=== PATIENT | male | born 1950 | race Caucasian/White ===

== ENCOUNTER 2018-10-01 08:31 | Outpatient (REF) | payer BC, SELFPAY ==
[2018-10-01 12:35] LABS: Anion Gap 10.8 mmol/L (3-11); BUN 19 mg/dL (7-18); CO2 26.2 mmol/L (21.0-32.0); CREATININE 1.16 mg/dL (0.70-1.30); Calcium 9.2 mg/dL (8.5-10.1); Chloride 104 mmol/L (98-107); Glucose 123 mg/dL (70-100); Potassium 4.2 mmol/L (3.5-5.1); Sodium 141 mmol/L (136-145); TSH (W/Ref FT4) 3.52 uIU/mL (0.358-3.74)
[2018-10-02 12:36] LABS: PSA, Screening 1.4 ng/ml (0-4.5)
== END 2018-10-01 08:51 ==
LOC: NCHCN 08:31
PROVIDERS: PCP Family Medicine; Visit Provider Family Medicine
DX: E03.9 Hypothyroidism, unspecified (principal); I10 Essential (primary) hypertension; R73.09 Other abnormal glucose; Z00.00 Encounter for general adult medical examination without abnormal findings
CPT/HCPCS: 80048; 84153; 84443

== ENCOUNTER 2019-01-07 21:17 | Outpatient (REF) | payer BC, SELFPAY ==
[2019-01-07 18:58] LABS: Anion Gap 6.1 mmol/L (3-11); BUN 19 mg/dL (7-18); CO2 29.9 mmol/L (21.0-32.0); Calcium 8.7 mg/dL (8.5-10.1); Calculated LDL 79 mg/dL; Chloride 104 mmol/L (98-107); Cholesterol 135 mg/dL (50-200); Estimated GFR 55.06 (mL/min/1.73m2); Glucose 122 mg/dL (70-100); HDL Cholesterol 44 mg/dL (40-60); Potassium 4.8 mmol/L (3.5-5.1); Sodium 140 mmol/L (136-145); Triglyceride 60 mg/dL (30-150)
== END 2019-01-07 21:37 ==
LOC: NCHCN 21:17
PROVIDERS: PCP Family Medicine; Visit Provider Family Medicine
DX: I10 Essential (primary) hypertension (principal); E78.5 Hyperlipidemia, unspecified
CPT/HCPCS: 80048; 80061

== ENCOUNTER 2019-11-14 13:58 | Outpatient (REF) | payer BC, SELFPAY ==
[2019-11-17 01:00] LABS: SARS-CoV-2 RNA Undetected (Undetected); SARS-CoV-2 Specimen Source Nasopharynx
== END 2019-11-14 14:18 ==
LOC: NCHCN 13:58
PROVIDERS: PCP Family Medicine; Visit Provider Family Medicine
DX: Z20.828 Contact with and (suspected) exposure to other viral communicable diseases (principal)
CPT/HCPCS: U0003

== ENCOUNTER 2020-01-07 20:46 | Outpatient (REF) | payer BC, SELFPAY ==
[2020-01-07 20:53] LABS: Anion Gap 11.4 mmol/L (3-11); BUN 23 mg/dL (7-18); CO2 25.6 mmol/L (21.0-32.0); CREATININE 1.32 mg/dL (0.70-1.30); Calcium 9.6 mg/dL (8.5-10.1); Chloride 102 mmol/L (98-107); Estimated GFR 53.94 (mL/min/1.73m2); Glucose 193 mg/dL (74-106); Potassium 4.2 mmol/L (3.5-5.1); Sodium 139 mmol/L (136-145); TSH (W/Ref FT4) 3.26 uIU/mL (0.36-3.74)
[2020-01-07 20:54] LABS: Hemoglobin A1C 6.6 % (<5.7)
== END 2020-01-07 21:06 ==
LOC: NCHCN 20:46
PROVIDERS: PCP Family Medicine; Visit Provider Family Medicine
DX: E03.9 Hypothyroidism, unspecified (principal); R73.03 Prediabetes; I10 Essential (primary) hypertension
CPT/HCPCS: 80048; 83036; 84443

== ENCOUNTER 2020-04-28 15:05 | Outpatient (REF) | payer BC, SELFPAY ==
[2020-04-27 13:29] LABS: Hemoglobin A1C 7.1 % (<5.7)
== END 2020-04-28 15:25 ==
LOC: NCHCN 15:05
PROVIDERS: PCP Family Medicine; Visit Provider Family Medicine
DX: R73.03 Prediabetes (principal)
CPT/HCPCS: 83036

== ENCOUNTER 2021-01-01 16:08 | Outpatient (REF) | payer BC, SELFPAY ==
[2020-12-31 21:16] LABS: Anion Gap 12.1 mmol/L (3-11); BUN 22 mg/dL (7-18); CO2 24.9 mmol/L (21.0-32.0); CREATININE 1.5 mg/dL (0.70-1.30); Calcium 9.6 mg/dL (8.5-10.1); Calculated LDL 49 mg/dL (<100); Chloride 104 mmol/L (98-107); Cholesterol 123 mg/dL (<200); Glucose 127 mg/dL (74-106); HDL Cholesterol 41 mg/dL (40-60); Potassium 4.9 mmol/L (3.5-5.1); Sodium 141 mmol/L (136-145); TSH (W/Ref FT4) 2.25 uIU/mL (0.36-3.74); Triglyceride 169 mg/dL (<150)
== END 2021-01-01 16:09 | disposition home or self-care (01) ==
LOC: NCHCN 16:08
PROVIDERS: PCP Family Medicine; Visit Provider Family Medicine
DX: I10 Essential (primary) hypertension (principal); E03.9 Hypothyroidism, unspecified; E78.5 Hyperlipidemia, unspecified; Z00.00 Encounter for general adult medical examination without abnormal findings
CPT/HCPCS: 80048; 80061; 84443

== ENCOUNTER 2021-02-23 08:10 | Outpatient (REF) | payer BC, SELFPAY ==
[2021-02-23 19:18] LABS: Anion Gap 5.4 mmol/L (3-11); BUN 24 mg/dL (7-18); CO2 32.6 mmol/L (21.0-32.0); CREATININE 1.3 mg/dL (0.70-1.30); Calcium 9.2 mg/dL (8.5-10.1); Chloride 104 mmol/L (98-107); Estimated GFR 54.73 (mL/min/1.73m2); Glucose 126 mg/dL (74-106); Potassium 4.7 mmol/L (3.5-5.1); Sodium 142 mmol/L (136-145)
== END 2021-02-23 08:11 | disposition home or self-care (01) ==
LOC: NCHCN 08:10
PROVIDERS: PCP Family Medicine; Visit Provider Family Medicine
DX: I10 Essential (primary) hypertension (principal); R80.9 Proteinuria, unspecified
CPT/HCPCS: 80048

== ENCOUNTER 2021-12-14 09:27 | Outpatient (REF) | payer BC, SELFPAY ==
[2021-12-14 16:29] LABS: ALT 25 U/L (16-63); AST 21 U/L (15-37); Albumin 4.1 g/dL (3.4-5.0); Alkaline Phosphatase 76 U/L (46-116); Anion Gap 8.8 mmol/L (3-11); BUN 21 mg/dL (7-18); CO2 29.2 mmol/L (21.0-32.0); CREATININE 1.2 mg/dL (0.70-1.30); Calcium 9.2 mg/dL (8.5-10.1); Chloride 101 mmol/L (98-107); Estimated GFR 65.06 (mL/min/1.73m2); Glucose 126 mg/dL (74-106); Potassium 4.4 mmol/L (3.5-5.1); Sodium 139 mmol/L (136-145); TSH (W/Ref FT4) 2.97 uIU/mL (0.36-3.74); Total Protein 7.9 g/dL (6.4-8.2)
[2021-12-15 05:17] LABS: Vitamin D 25 Total 79.2 ng/mL (30-100)
== END 2021-12-14 09:28 | disposition home or self-care (01) ==
LOC: NCHCN 09:27
PROVIDERS: PCP Family Medicine; Visit Provider Family Medicine
DX: E03.9 Hypothyroidism, unspecified (principal); R16.0 Hepatomegaly, not elsewhere classified; E11.9 Type 2 diabetes mellitus without complications; E55.9 Vitamin D deficiency, unspecified
CPT/HCPCS: 80053; 82306; 84443

== ENCOUNTER 2022-12-19 09:19 | Outpatient (REF) | payer BC, SELFPAY ==
[2022-12-19 17:23] LABS: Anion Gap 6.8 mmol/L (3-11); BUN 19 mg/dL (7-18); CO2 29.2 mmol/L (21.0-32.0); CREATININE 1.4 mg/dL (0.70-1.30); Calcium 9.2 mg/dL (8.5-10.1); Chloride 100 mmol/L (98-107); Estimated GFR 53.74 (mL/min/1.73m2); Glucose 140 mg/dL (74-106); Potassium 4.7 mmol/L (3.5-5.1); Sodium 136 mmol/L (136-145); Vitamin B12 215 pg/mL (193-986)
== END 2022-12-19 09:20 | disposition home or self-care (01) ==
LOC: NCHCN 09:19
PROVIDERS: PCP Family Medicine; Visit Provider Family Medicine
DX: E03.9 Hypothyroidism, unspecified (principal); I10 Essential (primary) hypertension; E11.40 Type 2 diabetes mellitus with diabetic neuropathy, unspecified; Z86.39 Personal history of other endocrine, nutritional and metabolic disease
CPT/HCPCS: 80048; 82607; 84443

== ENCOUNTER 2023-05-18 11:05 | Outpatient (REF) | payer BC, SELFPAY ==
[2023-05-18 17:03] LABS: Hemoglobin A1C 6.5 % (<5.7)
[2023-05-18 17:17] LABS: Vitamin B12 > 2000 pg/mL (193-986)
== END 2023-05-18 11:06 | disposition home or self-care (01) ==
LOC: NCHCN 11:05
PROVIDERS: PCP Family Medicine; Referring Provider Family Medicine; Visit Provider Family Medicine
DX: E11.40 Type 2 diabetes mellitus with diabetic neuropathy, unspecified (principal)
CPT/HCPCS: 82607; 83036

== ENCOUNTER 2024-03-14 12:10 | Outpatient (REF) | payer BC, SELFPAY ==
[2024-03-14 14:39] LABS: Hemoglobin A1C 7.1 % (<5.7)
[2024-03-14 14:49] LABS: ALT 24 U/L (16-63); AST 24 U/L (15-37); Albumin 3.8 g/dL (3.4-5.0); Alkaline Phosphatase 106 U/L (46-116); BUN 22 mg/dL (7-18); Bilirubin, Total 0.66 mg/dL (0.2-1.0); CREATININE 1.6 mg/dL (0.70-1.30); Calcium 9.5 mg/dL (8.5-10.1); Calculated LDL 58 mg/dL (<100); Chloride 104 mmol/L (98-107); Cholesterol 132 mg/dL (<200); Glucose 150 mg/dL (74-106); HDL Cholesterol 45 mg/dL (40-60); Potassium 4.5 mmol/L (3.5-5.1); Sodium 142 mmol/L (136-145); TSH 19.03 uIU/mL (0.36-3.74); Total Protein 7.9 g/dL (6.4-8.2); Triglyceride 149 mg/dL (<150)
== END 2024-03-14 12:11 | disposition home or self-care (01) ==
LOC: NCHCN 12:10
PROVIDERS: PCP Family Medicine; Visit Provider Physician Assistant
DX: E11.9 Type 2 diabetes mellitus without complications (principal); E03.9 Hypothyroidism, unspecified
CPT/HCPCS: 80053; 80061; 83036; 84443

== ENCOUNTER 2024-03-17 15:28 | Outpatient (REF) | payer BC, SELFPAY ==
[2024-03-17 21:00] LABS: COMMENT (LAB VIEW ONLY) 143.61 mg/dL
[2024-03-17 21:01] LABS: Microalb ug/mg Crea 118.4 ug/mg Cr
== END 2024-03-17 15:29 | disposition home or self-care (01) ==
LOC: NCHCN 15:28
PROVIDERS: PCP Family Medicine; Visit Provider Physician Assistant
DX: E11.9 Type 2 diabetes mellitus without complications (principal)
CPT/HCPCS: 82043; 82570

== ENCOUNTER 2024-03-20 21:55 | Outpatient (REF) | payer BC, SELFPAY | END 2024-03-20 21:56 | disposition home or self-care (01) | LOC: LBN 21:55 | PROVIDERS: PCP Family Medicine; Visit Provider Physician Assistant Medical | DX: J02.9 Acute pharyngitis, unspecified (principal) | CPT/HCPCS: 87070 ==

== ENCOUNTER 2024-04-03 09:51 | Outpatient (REF) | payer BC, SELFPAY ==
[2024-04-03 15:33] LABS: Abs Immature Grans 0.03 10^3/uL (0.0-0.06); Absolute Basophil Count 0.08 10^3/uL (0.0-0.2); Absolute Eosinophil Count 0.26 10^3/uL (0.0-0.7); Absolute Lymphocyte Count 2.03 10^3/uL (1.2-3.4); Absolute Monocyte Count 0.63 10^3/uL (0.1-0.8); Absolute Neutrophil Count 4.03 10^3/uL (1.2-6.7); Basophils % 1.1 %; Eosinophils % 3.7 %; HCT 41.8 % (40.0-50.0); HGB 13.9 g/dL (13.5-17.5); Immature Grans % 0.4 %; Lymphocytes % 28.8 %; MCH 30.2 pg (27.0-33.0); MCHC 33.3 % (32.0-36.0); MCV 91 fL (80-95); MPV 9.8 fL (8.0-11.0); Monocytes % 8.9 %; Neutrophils % 57.1 %; Platelet Count 208 10^3/uL (130-400); RBC 4.61 10^6/uL (4.36-5.78); RDW 14.5 % (11.8-14.1); RDW-SD 48.1 fL; WBC 7.06 10^3/uL (4.4-10.8)
[2024-04-04 12:44] LABS: Albumin 51.4 % (55.8-66.1); Albumin g/dL 3.8 g/dL (3.6-5.2); Total Protein 7.3 g/dL (6.3-8.2)
== END 2024-04-03 09:52 | disposition home or self-care (01) ==
LOC: NCHCN 09:51
PROVIDERS: PCP Family Medicine; Visit Provider Physician Assistant
DX: R59.0 Localized enlarged lymph nodes (principal)
CPT/HCPCS: 84165; 85025

== ENCOUNTER 2024-06-20 16:17 | Outpatient (REF) | payer BC, SELFPAY ==
[2024-06-20 21:51] LABS: Hemoglobin A1C 7.5 % (<5.7)
[2024-06-20 21:56] LABS: Anion Gap 9.8 mmol/L (3-11); BUN 28 mg/dL (7-18); CO2 29.2 mmol/L (21.0-32.0); CREATININE 1.5 mg/dL (0.70-1.30); Calcium 9.8 mg/dL (8.5-10.1); Chloride 101 mmol/L (98-107); Estimated GFR 49.16 (mL/min/1.73m2); Glucose 198 mg/dL (74-106); Potassium 4.3 mmol/L (3.5-5.1); Sodium 140 mmol/L (136-145); TSH 2.57 uIU/mL (0.36-3.74)
== END 2024-06-20 16:18 | disposition home or self-care (01) ==
LOC: NCHCN 16:17
PROVIDERS: PCP Physician Assistant; Visit Provider Physician Assistant
DX: E11.9 Type 2 diabetes mellitus without complications (principal); N28.9 Disorder of kidney and ureter, unspecified; E03.9 Hypothyroidism, unspecified
CPT/HCPCS: 80048; 83036; 84443

== ENCOUNTER 2024-07-02 09:51 | Outpatient (CLI) | payer BC, SELFPAY ==
[2024-07-02 13:54] LABS: Abs Immature Grans 0.02 10^3/uL (0.0-0.06); Absolute Basophil Count 0.06 10^3/uL (0.0-0.2); Absolute Eosinophil Count 0.19 10^3/uL (0.0-0.7); Absolute Lymphocyte Count 1.82 10^3/uL (1.2-3.4); Absolute Monocyte Count 0.61 10^3/uL (0.1-0.8); Absolute Neutrophil Count 4.51 10^3/uL (1.2-6.7); Basophils % 0.8 %; Eosinophils % 2.6 %; HCT 43.3 % (40.0-50.0); HGB 14.2 g/dL (13.5-17.5); Immature Grans % 0.3 %; Lymphocytes % 25.2 %; MCH 30.1 pg (27.0-33.0); MCHC 32.8 % (32.0-36.0); MCV 92 fL (80-95); MPV 9.2 fL (8.0-11.0); Monocytes % 8.5 %; Neutrophils % 62.6 %; Platelet Count 213 10^3/uL (130-400); RBC 4.72 10^6/uL (4.36-5.78); RDW 13.3 % (11.8-14.1); RDW-SD 45.5 fL; WBC 7.21 10^3/uL (4.4-10.8)
[2024-07-02 14:20] LABS: ALT 28 U/L (16-63); AST 22 U/L (15-37); Albumin 3.9 g/dL (3.4-5.0); Alkaline Phosphatase 135 U/L (46-116); Anion Gap 7.6 mmol/L (3-11); BUN 27 mg/dL (7-18); Bilirubin, Total 0.7 mg/dL (0.2-1.0); CO2 28.4 mmol/L (21.0-32.0); CREATININE 1.6 mg/dL (0.70-1.30); Calcium 9.9 mg/dL (8.5-10.1); Chloride 104 mmol/L (98-107); Glucose 221 mg/dL (74-106); LDH 175 U/L (85-227); Potassium 4.3 mmol/L (3.5-5.1); Sodium 140 mmol/L (136-145); Total Protein 8.5 g/dL (6.4-8.2); Uric Acid 4.7 mg/dL (3.5-7.2)
[2024-07-03 12:57] LABS: Albumin 51.4 % (55.8-66.1); Albumin g/dL 4.2 g/dL (3.6-5.2); Total Protein 8.1 g/dL (6.3-8.2)
[2024-07-03 17:00] LABS: Beta-2-Microglobulin 3.76 mcg/mL
[2024-07-03 17:02] LABS: Leukemia/Lymphoma by FC (Blood (See below)
== END 2024-07-02 09:52 | disposition home or self-care (01) ==
LOC: LBO 09:54
PROVIDERS: PCP Physician Assistant; Visit Provider Physician Assistant
DX: C83.30 Diffuse large B-cell lymphoma, unspecified site (principal)
CPT/HCPCS: 36415; 80053; 88185; 82232; 83615; 84165; 84550; 85025; 88184; 88189

== ENCOUNTER 2024-08-22 15:28 | Inpatient (IN) | payer BC, MEDICARE, SELFPAY ==
[2024-08-22] VITALS (75 sets, daily range): BP systolic 100–152; BP diastolic 47–76; PULSE 107–125; RESP 6–26; TEMP 37.8–38; O2SAT 93–99
--- NOTE | 2024-08-22 15:15 | RT.EKG_ITS ---
APPROVED REPORT Exam: Resting ECG Reason for Exam: SEPSIS Patient Location: E HR:121 bpm ECG Measurements Heart Rate 121 AXIS SD 155 P 49 QRSd 71 QRS -25 QT 271 T 231 QTc 385 Conclusion Sinus tachycardia...rate> 99 Nonspecific T abnormalities, diffuse leads...T <-0.10mV, ant/lat/inf No Occlusion PA
--- NOTE | 2024-08-22 15:30 | DI.RAD_ITS ---
Exam(s) XR PORTABLE CHEST AP EXAM: XR PORTABLE CHEST AP CLINICAL HISTORY: sepsis TECHNIQUE: 2D digital imaging was performed of the chest. One image was obtained. An AP view was ob tained. COMPARISON: No exams were available for comparison FINDINGS: MEDIASTINUM: Normal. HEART: Normal. PULMONARY VASCULATURE: Normal. LUNGS: Clear. PLEURAL SPACE: No pleural effusion or pneumothorax. BONE:Within normal limits for the patient's age. OTHER FINDINGS:There is a right port in place. IMPRESSION: No acute pulmonary findings. DATA REPOSITORY: RADIATION DOSE DELIVERED:
--- NOTE | 2024-08-22 15:37 | W.ED.GENAD ---
Discharge Plan Discharge Details Chief Complaint: AMS/LOC Clinical Impression: Neutropenic fever Primary Care Provider: Aly Varela ED Provider: Brian Don Home Meds and New Rx's Prescriptions: No Action levothyroxine 75 mcg capsule 75 mcg PO DAILY losartan 25 mg tablet 25 mg PO DAILY metformin 500 mg tablet 500 mg PO DAILY Ultra CoQ10 75 mg capsule 75 mg PO DAILY vitamins B1 B6 B12 Liquid 5 ml PO DAILY amlodipine 2.5 MG tablet 2.5 mg PO DAILY cholecalciferol (vitamin D3) 1,000 UNITS tablet 1,000 units PO HPI General Date/Time Provider Initiated Documentation: 08/22/24 15:34. HPI Narrative: MDM This is a tachycardic and borderline febrile 73-year-old male with history of diffuse large B cell lymphoma with recent initiation of chemotherapy with Rituxan, Cytoxan, cytoxan, doxorubicin, and Neulasta 8 days ago now with fevers concerning for sepsis for which patient will receive lactate, broad-spectrum antibiotics using cefepime and vancomycin following 2 sets of blood cultures. No pain out of proportion to suggest necrotizing soft tissue infection. No symptoms to suggest Ellen's gangrene. Right chest wall port does not appear infected. Clear lungs and neither tachypneic nor hypoxic so my suspicion for pneumonia is low however will obtain a chest x-ray. Will also obtain urinalysis. Soft nontender abdomen so not suspicious for appendicitis or diverticulitis I do not feel patient requires a CT scan of his abdomen. He is markedly tachycardic into the 120s. His ECG shows that he is in a sinus tachycardia. He received acetaminophen and 500 g of crystalloid with paramedics. His initial blood pressure was 128/80. He was tachycardic into the 140s. His subsequent blood pressure was 108 systolic. 4:52 PM Venous gas lacks acidemia and hypercarbia. Reassuring initial troponin. Comprehensive metabolic panel with mild bump in creatinine from 1.3-1.7 concerning for VASQUZE. Patient does have anion gap of 13. He is mildly decreased bicarbonate. He is also hyperglycemic concern for the possibility of DKA. Will treat with fluids and reassess as patient lacks acidemia on his blood gas. Has a reassuring normal lactate. Patient's CBC is concerning for neutropenia as he has a white count of 0.26 and an absolute neutrophil count of 0.1. He also has worsening thrombocytopenia. Patient has an absolute neutrophil count of 104 cells per microliter making him severely neutropenic. Will defer insulin at this point in time and plan on signing patient out to Dr. Garcia pending [facility] oncology consult and repeat basic metabolic panel following fluids. Patient signed out at bedside. Anticipate patient will be appropriate for local hospitalization. Chronic conditions affecting the care of the patient: Diffuse large B-cell lymphoma History obtained from an outside historian: Paramedics External record review: [facility] EMR [Diagnostic interpretations performed by me: Per my independent interpretation chest x-ray shows: Per my independent interpretation EKG shows: Narrow complex sinus tachycardia. No ST segment elevations. ST segment depressions in leads I and II. Left lateral T wave inversions. ]Medications: Cefepime vancomycin Social determinants of health affecting disposition: N/A Management discussed with: Dr. Garcia Treatment/interventions considered: N/A Response to therapies provided: Improved tachycardia HPI The patient presents to the emergency room for evaluation of generalized weakness. He reports experiencing generalized weakness, which he describes as difficulty rising from a seated position. This symptom onset was last night. He does not report any localized weakness in his extremities. He is not experiencing any respiratory symptoms such as cough or dyspnea, nor any chest discomfort, abdominal pain, or hematochezia. He has had a low-grade fever, with a maximum recorded temperature of 101 degrees Fahrenheit. He has no history of urinary tract infections and is circumcised. He is not experiencing any dysuria or penile pain. He is currently on Jardiance and has been informed that it may predispose him to urinary tract infections. 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 He received Tylenol from the ambulance crew. He underwent his first infusion therapy session 2 weeks ago, during which he was administered prednisone. This treatment initially resulted in an improvement in his condition; however, he experienced a relapse of symptoms last night. Exam General: Well-appearing in no acute distress speaking in complete sentences. Head: Normocephalic, atraumatic. Eye: Extraocular eye movements intact. No conjunctival injection. No scleral icterus. Ear, nose, mouth, throat: Grossly normal inspection. Normal voice, handling secretions normally. Neck: Trachea midline. Cardiovascular: Well-perfused distal extremities. Rapid regular rate. Respiratory: Nonlabored respiration. Systolic ejection murmur 4-6 left sternal border. Gastrointestinal: Nondistended abdomen. Soft nontender. : Circumcised penis. Nontender scrotum. No signs of rash in area. Musculoskeletal: No significant lower extremity pitting edema. Moving all 4 extremities spontaneously. Skin: Normal for age and race, grossly normal temperature and turgor. No acute rash. Neurologic: Alert and appropriate, no apparent acute deficits. Psychiatric: Mood and manner are appropriate. Grooming and personal hygiene are appropriate. Related Data Home Medications ?Medication ?Instructions ?Recorded ?Confirmed amlodipine 2.5 mg tablet 2.5 mg PO DAILY 12/15/16 05/06/24 cholecalciferol (vitamin D3) 25 1,000 units PO 02/13/17 05/06/24 mcg (1,000 unit) tablet coenzyme Q10 75 mg capsule (Ultra 75 mg PO DAILY 04/07/24 05/06/24 CoQ10) levothyroxine 75 mcg capsule 75 mcg PO DAILY 04/07/24 05/06/24 losartan 25 mg tablet 25 mg PO DAILY 04/07/24 05/06/24 metformin 500 mg tablet 500 mg PO DAILY 04/07/24 05/06/24 vitamins B1 B6 B12 oral liquid 5 ml PO DAILY 04/07/24 05/06/24 Allergies Allergy/AdvReac Type Severity Reaction Status Date / Time No Known Allergies Allergy Unverified 05/06/24 07:36 Medical Decision Making Quality:SDOH Health Related Social Needs: No Data to Display PFSH All Active Problems (Updated 08/22/24 @ 17:28 by Brian Don MD) Neutropenic fever (Acute) Enlarged lymph nodes (Acute) Medical History (Updated 08/22/24 @ 17:28 by Brian Don MD) Hypertension Nephrolithiasis Diverticulosis Surgical History (Updated 02/19/17 @ 15:30 by Kia Rosenberg) Colonoscopy - [facility] (02/13/17) Social History Smoking/Tobacco Use Status: Former Tobacco Use Smoking risk assessment performed?: Yes Alcohol Intake: former Drug use: Never Substance use type: does not use POCUS Exam (ED) Limited Cardiac Exam DATE OF EXAM: 08/22/24 TIME OF EXAM: 17:25 PROVIDER THAT PERFORMED THE STUDY: Brian Don IS THIS A REPEAT EXAM DURING THIS ENCOUNTER: no REASON FOR EXAM: Hypotension VISUALIZED STRUCTURES: Four Chambers, Left ventricle and LVOT VIEW OBTAINED: Apical 4-Chamber, Parasternal long-axis and Subxiphoid PERTINENT FINDINGS/IMPRESSION: No pericardial effusion and No RV dilation DIFFERENTIAL DIAGNOSES: Aortic outflow track less than 4 cm, good squeeze, RV less than LV, no significant pericardial effusion. No B-lines bilaterally Exam complete
[2024-08-22] MEDS: CEFEPIME 2 GM in Normal Saline 100 ML IVPB ×2 (15:59→23:57)
[2024-08-22] MEDS: VANCOMYCIN/WATER (PEG) 2 GM/400 ML BAG IVPB (16:00)
[2024-08-22] MEDS: Normal Saline 1,000 ML 1000 ML IV (16:01)
[2024-08-22 16:14] LABS: BE (Venous) -5 mmol/L (-2-3); HCO3 (Venous) 19 mmol/L (23-28); Lactate 1.9 mmol/L (<or=2.0); O2 Sat (Venous) 98 %; TCO2 (Venous) 17 mmol/L (24-29); pCO2 (Venous) 28 mmHg (41-51); pH (Venous) 7.45 (7.31-7.41); pO2 (Venous) 99 mmHg
[2024-08-22 16:17] LABS: Absolute Basophil Count 0.01 10^3/uL (0.0-0.2); Absolute Eosinophil Count 0.01 10^3/uL (0.0-0.7); HCT 33.7 % (40.0-50.0); HGB 11.5 g/dL (13.5-17.5); MCH 29.7 pg (27.0-33.0); MCHC 34.1 % (32.0-36.0); MCV 87 fL (80-95); MPV 10.3 fL (8.0-11.0); RBC 3.87 10^6/uL (4.36-5.78); RDW 13.4 % (11.8-14.1); RDW-SD 42.9 fL
[2024-08-22 16:38] LABS: ALT 30 U/L (16-63); AST 13 U/L (15-37); Albumin 2.7 g/dL (3.4-5.0); Alkaline Phosphatase 61 U/L (46-116); Anion Gap 13.2 mmol/L (3-11); BUN 22 mg/dL (7-18); Bilirubin, Total 1.5 mg/dL (0.2-1.0); CO2 19.8 mmol/L (21.0-32.0); CREATININE 1.7 mg/dL (0.70-1.30); Calcium 8.5 mg/dL (8.5-10.1); Chloride 99 mmol/L (98-107); Glucose 314 mg/dL (74-106); Potassium 3.7 mmol/L (3.5-5.1); Sodium 132 mmol/L (136-145); Total Protein 6.4 g/dL (6.4-8.2); Troponin I 35 ng/L (<or=76)
[2024-08-22 16:47] LABS: Absolute Lymphocyte Count 0.09 10^3/uL (1.2-3.4); Absolute Monocyte Count 0.04 10^3/uL (0.1-0.8); Atypical Lymphocytes % 4 %; Bands % 20 %
[2024-08-22 16:48] LABS: Diff Comment Manual Differential; Platelet Count 80 10^3/uL (130-400); RBC Morphology Normal
[2024-08-22 16:53] LABS: COVID-19 PCR Negative (Negative); Influenza A PCR Negative (Negative); Influenza B PCR Negative (Negative); RSV PCR Negative (Negative)
[2024-08-22 16:55] LABS: WBC 0.26 10^3/uL (4.4-10.8)
--- NOTE | 2024-08-22 16:55 | NUR.NOTE ---
Nursing Note: Critical values received from lab: WBC = 0.26 & Absolute Neutrophils = 0.10 Results delivered to AINSLEY Flower and Dr. Don, ED provider
[2024-08-22 16:57] LABS: Source Nasopharynx
[2024-08-22 17:45] LABS: Troponin I 36 ng/L (<or=76)
--- NOTE | 2024-08-22 18:51 | W.EDPROG ---
Date of service: 08/22/24 Time of Service: 17:00 Medical Decision Making In brief, this is a 73-year-old male patient with history of B-cell lymphoma, who just initiated cancer treatment with chemotherapy 1 week ago, presenting for evaluation of fever to a Tmax of 101, neutropenia, and urinary incontinence. His exam is concerning for neutropenic fever. He has received 1.5 L of IV fluids, cefepime, and vancomycin prior to my arrival. He did have mild anemia as well as a thrombocytopenia to 80. Had some hyperglycemia to 300, history of diabetes, without acidosis appreciated on VBG, making DKA of less concern. He did have an elevation in his BUN and creatinine slightly above his most recent baseline. Urinalysis noninfectious, COVID and influenza screening negative. I did consult oncology, who requested CT imaging to evaluate for any other cause of his neutropenic fever. This was performed and showed a short segment of inflammation in the sigmoid colon concerning for either diverticulitis versus colitis, no evidence for microperforation or abscess. I discussed this patient's case with the hospitalist who is graciously accepted him for admission for ongoing intravenous antibiosis. Cultures were sent and are pending. The patient remained hemodynamically appropriate while under my care and was transferred to the hospitalist team without incident. Angy Garcia MD Quality:SDOH Health Related Social Needs: No Data to Display Discharge Plan Disposition Patient Disposition: Admit to [facility] Condition: Stable Discharge Details Chief Complaint: AMS/LOC Clinical Impression: Neutropenic fever, Diverticulitis large intestine w/o perforation or abscess w/o bleeding Primary Care Provider: Aly Varela ED Provider: Angy Garcia Home Meds and New Rx's Prescriptions: No Action levothyroxine 75 mcg capsule 75 mcg PO DAILY losartan 25 mg tablet 25 mg PO DAILY metformin 500 mg tablet 500 mg PO DAILY Ultra CoQ10 75 mg capsule 75 mg PO DAILY vitamins B1 B6 B12 Liquid 5 ml PO DAILY amlodipine 2.5 MG tablet 2.5 mg PO DAILY cholecalciferol (vitamin D3) 1,000 UNITS tablet 1,000 units PO DAILY acyclovir 400 mg tablet 400 mg PO BID prochlorperazine maleate 10 mg tablet 10 mg PO PRN PRN atorvastatin 10 mg tablet 10 mg PO DAILY Patient Comments: TAKE ONE TABLET BY MOUTH EVERY NIGHT (DME) blood-glucose meter [OneTouch Verio Flex meter] [facility] MISCELLANEOUS Patient Comments: TEST ONCE DAILY polyethylene glycol 3350 17 gram powder in packet 17 g PO DAILY PRN Patient Comments: MIX 17 GRAMS (1 PACKET) IN LIQUID AND DRINK BY MOUTH DAILY NEEDED (CONSTIPATION) (DME) OneTouch Verio test strips Strip MISCELLANEOUS Patient Comments: TEST BLOOD SUGAR ONCE DAILY (DME) lancets [OneTouch Delica Plus Lancet] 33 [place] [facility] [place]LL[place]OUS Patient Comments: TEST BLOOD SUGAR ONCE DAILY
[2024-08-22] MEDS: Omnipaque 350 MG/ML 100 ML BTL IJ (19:25)
[2024-08-22] MEDS: Normal Saline - Diluent 50 ML VIAL IJ (19:26)
--- NOTE | 2024-08-22 19:29 | DI.CT_ITS ---
Exam(s) CT CHEST/ABD/PEL W EXAM: CT CHEST/ABD/PEL W CLINICAL HISTORY: neutropenic fever. TECHNIQUE: Imaging Protocol: Axial computed tomography images with coronal and sagittal reformatted images were created and reviewed. Computer aided detection (CAD) was utilized. CONTRAST MATERIAL: Intravenous: Omnipaque 350 Contrast volume:100 ml Oral: no COMPARISON: CT ABD PELVIS WITH CONTRAST from 09/06/2011 CR XR PORTABLE CHEST AP from 08/22/2024 FINDINGS: CHEST: Pulmonary parenchyma: No consolidation. No dominant measurable mass. Tracheobronchial tree: No bronchiectasis. No mucous plugging.No bronchial wall thickening. Pleura: No effusion or pneumothorax. Mediastinum: Within normal limits. Pulmonary arteries: No visible emboli. Cardiovascular: Heart size normal. No pericardial effusion. Thoracic aorta non-dilated. Bones: Unremarkable for age. No lytic or blastic lesions.No compression fractures. Soft tissues: Port over right pectoral muscle with tip in right atrium. Mild bilateral gynecomastia. ABDOMEN and PELVIS: Liver: Normal density. No suspicious mass. Gallbladder and biliary tract: No evidence of stones or wall thickening. No biliary dilatation. Pancreas: Normal density, no abnormal calcifications or inflammatory process. Spleen: Normal. Kidneys: Normal size, contour and axis. No radiodense stones. No obstructive uropathy. No suspicious masses seen. Adrenal glands: No masses seen. Aorta: Abdominal portion non-dilated. Lymph nodes: Within normal limits. Soft tissues: Prior low left inguinal hernia repair. Bladder: Over distended but unremarkable. Bowel: Diverticulosis of the sigmoid colon. Wall thickening and inflammatory changes in the surround ing fat consistent with diverticulitis. No evidence of perforation or abscess. No obstruction. Onel endix normal. Peritoneal cavity: No ascites. No focal collection. No free air. Bones: Unremarkable for age. Reproductive organs: Unremarkable for age. IMPRESSION: No acute abnormality in the chest. Sigmoid diverticulitis. The preliminary [facility] report was reviewed. RADIATION DOSE DELIVERED: Total DLP DATA REPOSITORY: All CT scans at this facility are submitted to the National Radiology Data Registry (NRDR) Dose Index Registry (DIR) with the [employer] (A[employer]). RADIATION OPTIMIZATION: All CT scans at this facility use at least one of these dose optimization te chniques: automated exposure control; mA and/or kV adjustment per patient size (includes targeted exa ms where dose is matched to clinical indication); or iterative reconstruction.
[2024-08-22 19:48] LABS: Bilirubin Negative (Negative); Blood Small (Negative); Clarity Clear (Clear); Glucose >=1000 mg/dL (Negative); Ketones 40 mg/dL (Negative); Leukocyte Esterase Negative (Negative); Nitrite Negative (Negative); Specific Gravity 1.015 (1.005-1.025); Urobilinogen 0.2 mg/dL (Up to 0.2)
[2024-08-22 19:58] LABS: Bacteria Rare HPF (Negative); Casts 0-2 Hyaline LPF (Negative); Crystals Negative HPF (Negative); Epithelial Cells Rare HPF (Negative); Mucus Trace (Negative); RBC 0-2 HPF (0-2); WBC 0-2 HPF (0-5)
[2024-08-22 19:59] LABS: C & S Indicated? No
--- NOTE | 2024-08-22 20:28 | DI.[facility]_ITS ---
PROCEDURE INFORMATION: Exam: CT Chest With Contrast; Diagnostic Exam date and time: 08/22/2024 7:18 PM Age: 73 years old Clinical indication: Neutropenic fever TECHNIQUE: Imaging protocol: Diagnostic computed tomography of the chest with contrast. 3D rendering (Not supervised by radiologist): MIP and/or 3D reconstructed images were created by the technologist. Radiation optimization: All CT scans at this facility use at least one of these dose optimization techniques: automated exposure control; mA and/or kV adjustment per patient size (includes targeted exams where dose is matched to clinical indication); or iterative reconstruction. Contrast material: [id number]; Contrast volume: 100 ml; Contrast route: INTRAVENOUS (IV); COMPARISON: CR XR PORTABLE CHEST AP 08/22/2024 4:37 PM FINDINGS: Lungs: Unremarkable. No consolidation. No masses. Pleural spaces: Unremarkable. No pneumothorax. No pleural effusion. Heart: Unremarkable. No cardiomegaly. No pericardial effusion. Lymph nodes: Unremarkable. No enlarged lymph nodes. Vasculature: Unremarkable. No aortic aneurysm. Bones/joints: Unremarkable. No acute fracture. Soft tissues: Unremarkable. IMPRESSION: No acute findings. PROCEDURE INFORMATION: Exam: CT Abdomen And Pelvis With Contrast Exam date and time: 08/22/2024 7:18 PM Age: 73 years old Clinical indication: Neutropenic fever TECHNIQUE: Imaging protocol: Computed tomography of the abdomen and pelvis with contrast. 3D rendering (Not supervised by radiologist): MIP and/or 3D reconstructed images were created by the technologist. Radiation optimization: All CT scans at this facility use at least one of these dose optimization techniques: automated exposure control; mA and/or kV adjustment per patient size (includes targeted exams where dose is matched to clinical indication); or iterative reconstruction. Contrast material: [id number]; Contrast volume: 100 ml; Contrast route: INTRAVENOUS (IV); COMPARISON: US ABDOMEN LIMITED 12/23/2021 7:56 AM FINDINGS: Liver: Normal. No mass. Gallbladder and biliary ducts: Normal. No calcified stones. No ductal dilation. Pancreas: Normal. No ductal dilation. Spleen: Normal. No splenomegaly. Adrenal glands: Normal. No mass. Kidneys and ureters: Normal. No hydronephrosis. Stomach and bowel: There is moderate sigmoid diverticulosis. Short-segment wall thickening and mucosal enhancement in the mid sigmoid colon compatible with diverticulitis or possibly focal colitis. No evidence of bowel obstruction. Appendix: No evidence of appendicitis. Intraperitoneal space: Unremarkable. No free air. No significant fluid collection. Vasculature: Unremarkable. No abdominal aortic aneurysm. Lymph nodes: Unremarkable. No enlarged lymph nodes. Urinary bladder: Unremarkable as visualized. Reproductive: Unremarkable as visualized. Bones/joints: Unremarkable. No acute fracture. Soft tissues: Unremarkable. IMPRESSION: Inflammatory changes in the mid sigmoid colon suggestive of diverticulitis. Focal colitis would be of consideration as well. Dictated and Authenticated by: Pierre Casper MD. Orderin St. Leroy Travis MD
[2024-08-22 20:29] LABS: Troponin I 32 ng/L (<or=76)
--- NOTE | 2024-08-22 20:39 | HPE_ITS ---
Date of service: 08/22/24 Time of Service: 20:40 Assessment and Plan Assessment and plan (1) Neutropenic fever: Start date: 08/22/24 Status: Acute Assessment and plan: This is a 73-year-old gentleman with recent diagnosis of lymphoma now on chemotherapy and presenting with neutropenic fever. Close likely source of infection is GI and he is appropriately covered. Blood cultures have been performed. Urinalysis appears benign. Continue IV antibiotic therapy and reverse isolation trending ANC. Patient is a full code. (2) Diverticulitis large intestine w/o perforation or abscess w/o bleeding: Start date: 08/22/24 Status: Acute Assessment and plan: Probable source of fever in this neutropenic patient with appropriate antibiotic coverage awaiting blood cultures. (3) DKA (diabetic ketoacidosis): Start date: 08/22/24 Status: Acute Assessment and plan: Patient does have ketones and acidosis with concern for advancing DKA with his acute illness. IV hydration and more frequent glucometer measures with insulin coverage until patient is improving. Patient will be at ICU level of care during this time of treatment with more intensive nursing management and monitoring. (4) Diffuse large B-cell lymphoma: Status: Acute Assessment and plan: Recent diagnosis with an initiation of therapy recently. Continue to follow-up with hematology/oncology (5) Diabetes type 2, controlled: Status: Chronic Assessment and plan: Hold outpatient for therapy with glucometer measurements every 4 hours with sensitive sliding scale short acting insulin coverage until anion gap closes and acidosis is improving with hydration to assure patient does not progress to DKA. (6) CKD (chronic kidney disease) stage 3, GFR 30-59 ml/min: Status: Chronic Assessment and plan: At baseline creatinine with patient to have trending of labs while we hydrate with fluids to clear acidosis. (7) Hypertension: Assessment and plan: Continue outpatient medical therapy adjusting as needed. (8) Hypothyroidism (acquired): Status: Chronic Assessment and plan: Check TSH, continue outpatient supplementation. History of Present Illness History of Present Illness Chief Complaint: Fever over 101 ?F status post chemotherapy with Neulasta 8 days ago. Narrative: This is a 73-year-old male patient who has a new diagnosis of large B-cell lymphoma having had his first round of chemotherapy 1 week ago with Neulasta given at that time. He began to have fever with urinary incontinence and was advised to be seen in the ED for evaluation. He was found to be neutropenic with his fever and imaging revealed diverticulitis and possible colitis the patient having some abdominal discomfort. His urinalysis did not reveal infection. His ANC was below 200. He also had ketones in his urine with hyperglycemia having diabetes. There is some concern of early DKA and the patient was started on IV hydration along with continuing his broad-spectrum antibiotic therapy with cefepime and vancomycin. Because of the possible need for DKA protocol to be followed and close monitoring with his neutropenic fever, patient was placed in ICU for ICU level of care initially. Patient had no other major complaints with review of system. He is a full code. Review of Systems Narrative: 13 point review of systems otherwise unrevealing or stable. PFSH All Active Problems (Updated 08/23/24 @ 03:02 by Shaggy Castro) DKA (diabetic ketoacidosis) (Acute) Hypothyroidism (acquired) (Chronic) Diffuse large B-cell lymphoma (Acute) Diverticulitis large intestine w/o perforation or abscess w/o bleeding (Acute) CKD (chronic kidney disease) stage 3, GFR 30-59 ml/min (Chronic) Diabetes type 2, controlled (Chronic) Neutropenic fever (Acute) Enlarged lymph nodes (Acute) Medical History Hypertension Nephrolithiasis Diverticulosis Surgical History Colonoscopy - MAC (02/13/17) Social History Smoking/Tobacco Use Status: Former Tobacco Use Smoking risk assessment performed?: Yes Alcohol Intake: former Drug use: Never Substance use type: does not use Housing: house Meds Allergies and Home Medications Allergies Allergy/AdvReac Type Severity Reaction Status Date / Time No Known Allergies Allergy Unverified 05/06/24 07:36 Home Medications ?Medication ?Instructions ?Recorded ?Confirmed ?Type amlodipine 2.5 mg tablet 2.5 mg PO DAILY 12/15/16 08/22/24 History cholecalciferol (vitamin D3) 25 1,000 units PO DAILY 02/13/17 08/22/24 History mcg (1,000 unit) tablet coenzyme Q10 75 mg capsule (Ultra 75 mg PO DAILY 04/07/24 08/22/24 History CoQ10) levothyroxine 75 mcg capsule 75 mcg PO DAILY 04/07/24 08/22/24 History losartan 25 mg tablet 25 mg PO DAILY 04/07/24 08/22/24 History metformin 500 mg tablet 500 mg PO DAILY 04/07/24 08/22/24 History vitamins B1 B6 B12 oral liquid 5 ml PO DAILY 04/07/24 08/22/24 History acyclovir 400 mg tablet 400 mg PO BID 08/22/24 08/22/24 History atorvastatin 10 mg tablet 10 mg PO DAILY 08/22/24 08/22/24 History blood sugar diagnostic (OneTouch 08/22/24 08/22/24 History Verio test strips) [facility] 08/22/24 08/22/24 History Verio Flex Meter) lancets 33 gauge (OneTouch Delica 08/22/24 08/22/24 History Plus Lancet) polyethylene glycol 3350 17 gram 17 g PO DAILY PRN 08/22/24 08/22/24 History oral powder packet prochlorperazine maleate 10 mg 10 mg PO PRN PRN 08/22/24 08/22/24 History tablet Exam Narrative Exam Narrative: General: Patient appears slightly older than stated age, moderately obese, alert and oriented x 3 and in no acute distress. HEENT: Normocephalic, eyes with pupils equal and reactive to light symmetrically, extraocular movement intact and sclera anicteric. Oropharynx with dry mucosa and fair dentition. Neck: Supple without JVD. Back: Kyphotic without CVA tenderness. Lungs: Bronchovesicular breath sound diffusely with no focalizing rales or rhonchi. No expiratory wheeze. Fair aeration. Heart: Tachycardic rate with regular rhythm. No appreciable murmur or gallop. No rubs. Abdomen: Obese contour, soft with slight tenderness to palpation left lower quadrant with no rebound or guarding. No palpable hepatosplenomegaly. Bowel sounds positive in all quadrants. Genitalia/rectal: Exam deferred. Skin: Pale, warm and dry. Extremities: Without clubbing, cyanosis or pitting edema. Fair capillary refill. Neuro: Cranial nerves II through XII grossly intact, no focalized motor deficit or tremor. Psych: Normal affect and mood. No abnormal thought processes. Remote and recent memory intact. Results Imaging Imaging Studies: Exam: CT Chest With Contrast; Diagnostic Exam date and time: 08/22/2024 7:18 PM Age: 73 years old Clinical indication: Neutropenic fever COMPARISON: CR XR PORTABLE CHEST AP 08/22/2024 4:37 PM FINDINGS: Lungs: Unremarkable. No consolidation. No masses. Pleural spaces: Unremarkable. No pneumothorax. No pleural effusion. Heart: Unremarkable. No cardiomegaly. No pericardial effusion. Lymph nodes: Unremarkable. No enlarged lymph nodes. Vasculature: Unremarkable. No aortic aneurysm. Bones/joints: Unremarkable. No acute fracture. Soft tissues: Unremarkable. IMPRESSION: No acute findings. Exam: CT Abdomen And Pelvis With Contrast Exam date and time: 08/22/2024 7:18 PM Age: 73 years old Clinical indication: Neutropenic fever COMPARISON: US ABDOMEN LIMITED 12/23/2021 7:56 AM FINDINGS: Liver: Normal. No mass. Gallbladder and biliary ducts: Normal. No calcified stones. No ductal dilation. Pancreas: Normal. No ductal dilation. Spleen: Normal. No splenomegaly. Adrenal glands: Normal. No mass. Kidneys and ureters: Normal. No hydronephrosis. Stomach and bowel: There is moderate sigmoid diverticulosis. Short-segment wall thickening and mucosal enhancement in the mid sigmoid colon compatible with diverticulitis or possibly focal colitis. No evidence of bowel obstruction. Appendix: No evidence of appendicitis. Intraperitoneal space: Unremarkable. No free air. No significant fluid collection. Vasculature: Unremarkable. No abdominal aortic aneurysm. Lymph nodes: Unremarkable. No enlarged lymph nodes. Urinary bladder: Unremarkable as visualized. Reproductive: Unremarkable as visualized. Bones/joints: Unremarkable. No acute fracture. Soft tissues: Unremarkable. IMPRESSION: Inflammatory changes in the mid sigmoid colon suggestive of diverticulitis. Focal colitis would be of consideration as well. Labs 08/22/24 15:50 08/22/24 23:10 Labs: Laboratory Results - last 24 hr 08/22/24 08/22/24 08/22/24 15:50 16:08 17:20 WBC 0.26 L* RBC 3.87 L Hgb 11.5 L Hct 33.7 L MCV 87 MCH 29.7 MCHC 34.1 RDW 13.4 Plt Count 80 L MPV 10.3 Immature Gran % 0.0 Neutrophils % 20.0 Band Neutrophils % 20 Lymphocytes % 32.0 Atypical Lymphs % 4 Monocytes % 16.0 Eosinophils % 4.0 Basophils % 4.0 Nucleated RBC % 0.0 Absolute Neutrophils 0.10 L* Absolute Lymphocytes 0.09 L Absolute Monocytes 0.04 L Absolute Eosinophils 0.01 Absolute Basophils 0.01 RBC Morphology Normal VBG pH 7.45 H VBG pCO2 28 L VBG pO2 99 VBG HCO3 19 L VBG Total CO2 17 L VBG O2 Saturation 98 VBG Base Excess -5 L VBG Lactate 1.9 Sodium 132 L Potassium 3.7 Chloride 99 Carbon Dioxide 19.8 L Anion Gap 13.2 H BUN 22 H Creatinine 1.7 H Est GFR (CKD-EPI 2020) 42.30 Glucose 314 H Calcium 8.5 Total Bilirubin 1.5 H AST 13 L ALT 30 Alkaline Phosphatase 61 Troponin I 35 36 Total Protein 6.4 Albumin 2.7 L Urine Color Urine Clarity Urine pH Ur Specific [place] Urine Protein Urine Ketones Urine Blood Urine Nitrite Urine Bilirubin Urine Urobilinogen Ur Leukocyte Esterase Urine RBC Urine WBC Ur Epithelial Cells Urine Crystals Urine Bacteria Urine Casts Urine Mucus Ur Culture Indicated? Urine Glucose COVID-19 Source Nasopharynx SARS-CoV-2 (PCR) Negative Influenza Type A (PCR) Negative Influenza Type B (PCR) Negative RSV (PCR) Negative 08/22/24 19:41 WBC RBC Hgb Hct MCV MCH MCHC RDW Plt Count MPV Immature Gran % Neutrophils % Band Neutrophils % Lymphocytes % Atypical Lymphs % Monocytes % Eosinophils % Basophils % Nucleated RBC % Absolute Neutrophils Absolute Lymphocytes Absolute Monocytes Absolute Eosinophils Absolute Basophils RBC Morphology VBG pH VBG pCO2 VBG pO2 VBG HCO3 VBG Total CO2 VBG O2 Saturation VBG Base Excess VBG Lactate Sodium Potassium Chloride Carbon Dioxide Anion Gap BUN Creatinine Est GFR (CKD-EPI 2020) Glucose Calcium Total Bilirubin AST ALT Alkaline Phosphatase Troponin I Total Protein Albumin Urine Color Yellow Urine Clarity Clear Urine pH 5.0 Ur Specific [place] 1.015 Urine Protein 100 H Urine Ketones 40 H Urine Blood Small H Urine Nitrite Negative Urine Bilirubin Negative Urine Urobilinogen 0.2 Ur Leukocyte Esterase Negative Urine RBC 0-2 Urine WBC 0-2 Ur Epithelial Cells Rare Urine Crystals Negative Urine Bacteria Rare Urine Casts 0-2 Hyaline Urine Mucus Trace Ur Culture Indicated? No Urine Glucose >=1000 H COVID-19 Source SARS-CoV-2 (PCR) Influenza Type A (PCR) Influenza Type B (PCR) RSV (PCR) Last Vital Signs Temp 37.8 C H 08/22/24 15:41 Pulse 108 H 08/22/24 17:20 Resp 22 08/22/24 17:20 BP 114/58 L 08/22/24 17:15 Pulse Ox 98 08/22/24 17:20 Time Spent Time spent with Patient: >75 minutes Time was spent: preparing to see the patient(eg.review tests), obtaining and/or reviewing separately otained hiistory, ordering medications,tests, procedures, referring, communicating with other health physician primary care sports medicine, indepentently interpreting results, counseling the patient and care coordination
[2024-08-22] MEDS: Normal Saline 1,000 ML 150 ML IV (23:24)
[2024-08-22 23:26] LABS: Anion Gap 10.5 mmol/L (3-11); BUN 22 mg/dL (7-18); CO2 20.5 mmol/L (21.0-32.0); CREATININE 1.6 mg/dL (0.70-1.30); Calcium 8.2 mg/dL (8.5-10.1); Chloride 99 mmol/L (98-107); Glucose 269 mg/dL (74-106); Potassium 3.7 mmol/L (3.5-5.1); Sodium 130 mmol/L (136-145)
[2024-08-22] MEDS: Acetaminophen 325 MG TAB PO (23:55)
[2024-08-23] VITALS (53 sets, daily range): BP systolic 97–123; BP diastolic 61–73; PULSE 92–120; RESP 13–28; TEMP 36.4–37.7; O2SAT 93–98
[2024-08-23] MEDS: Insulin Aspart 300 UNITS/3 ML PEN SC ×6 (00:03→21:23)
[2024-08-23] MEDS: Acyclovir 400 MG TAB PO ×2 (00:10→08:57)
--- NOTE | 2024-08-23 00:15 | W.PC.ACHO ---
Registration Status: Primary Language: Preferred Language: ED Information & Data Chief Complaint AMS/LOC 08/22/24 15:43 Chief Complaint AMS/LOC 08/22/24 15:35 Triage Note patient brought in by EMS 08/22/24 15:35 with h/o know B cell lymphoma with treatment started a week ago. Yesterday complaint of weakness, incontinent, confusion. Patient has right Medi-port not accessed. enroute ems gave IV tylenol Medical / Surgical History (Last Reviewed 08/22/24 @ 23:35 by Shaggy Castro) Hypertension Nephrolithiasis Diverticulosis (Last Reviewed 08/22/24 @ 23:35 by Shaggy Castro) Colonoscopy - MAC (02/13/17) Most Recent Vital Signs Temperature 37.9 C H 08/22/24 23:55 Temperature Source Tympanic 08/22/24 22:55 Pulse 116 H 08/22/24 22:55 Pulse 115 H 08/22/24 22:01 Respiratory Rate 7 L 08/22/24 22:55 Respiratory Effort Normal, Non-Labored 08/22/24 22:55 Respiratory Depth Normal 08/22/24 22:55 Respiratory Pattern Normal 08/22/24 22:55 Blood Pressure 114/52 L 08/22/24 22:00 Blood Pressure Mean 73 08/22/24 22:00 Blood Pressure Position Supine 08/22/24 22:55 Pulse Oximetry 96 08/22/24 22:55 Oxygen Delivery Method Room Air 08/22/24 22:55 Oxygen Flow Rate 0 08/22/24 22:55 Pain Level 0 08/22/24 22:55 Allergies No Known Allergies Allergy (Unverified 05/06/24 07:36) Precautions Isolation PUI 08/22/24 15:43 Active Medications Generic Name Dose Route Start Last Admin Trade Name Freq PRN Reason Stop Dose Admin Acetaminophen 0 mg 08/22/24 22:46 08/22/24 23:55 Acetaminophen 325 Mg Tab PO 650 mg Q4H PRN PRN Administration Acyclovir 400 mg 08/23/24 01:00 08/23/24 00:10 Acyclovir 400 Mg Tab PO 08/23/24 01:01 400 mg ONCE ONE Administration Sodium Chloride 1,000 mls @ 150 mls/hr 08/22/24 22:46 08/22/24 23:24 Saline 1000ml Bag IV 150 mls/hr INFUSION LINDA Administration Cefepime HCl 2 gm/ Sodium 100 mls @ 200 mls/hr 08/23/24 00:00 08/22/24 23:57 Chloride IVPB 200 mls/hr Q8H LINDA Administration Insulin Aspart 0 units 08/23/24 00:00 08/23/24 00:03 Insulin Aspart 300 Units/3 Ml Pen SC 3 units Q4H LINDA Administration Protocol IV IV Catheter Type [Left Forearm Saline Lock ] IV Catheter Type [Right Saline Lock Forearm] IV Catheter Gauge [Left 20 Forearm] IV Catheter Gauge [Right 18 Forearm] Diet Orders Category Date Time Status Diabetes Consistent CHO/Heart Healthy [DIET] Nutrition 08/23/24 Breakfast Active Diagnostics 08/23/24 08/22/24 08/22/24 Range/Units 05:35 23:10 20:00 WBC Pending (4.4-10.8) 10^3/uL RBC Pending (4.36-5.78) 10^6/uL Hgb Pending (13.5-17.5) g/dL Hct Pending (40.0-50.0) % MCV Pending (80-95) fL MCH Pending (27.0-33.0) pg MCHC Pending (32.0-36.0) % RDW Pending (11.8-14.1) % Plt Count Pending (130-400) 10^3/uL MPV Pending (8.0-11.0) fL Immature Gran % % Neutrophils % % Band Neutrophils % % Lymphocytes % % Atypical Lymphs % % Monocytes % % Eosinophils % % Basophils % % Nucleated RBC % (0.0-0.3) % Absolute Neutrophils (1.2-6.7) 10^3/uL Absolute Lymphocytes (1.2-3.4) 10^3/uL Absolute Monocytes (0.1-0.8) 10^3/uL Absolute Eosinophils (0.0-0.7) 10^3/uL Absolute Basophils (0.0-0.2) 10^3/uL RBC Morphology PT Pending INR Pending VBG pH (7.31-7.41) VBG pCO2 (41-51) mmHg VBG pO2 mmHg VBG HCO3 (23-28) mmol/L VBG Total CO2 (24-29) mmol/L VBG O2 Saturation % VBG Base Excess (-2-3) mmol/L VBG Lactate (<or=2.0) mmol/L Sodium 130 L (136-145) mmol/L Potassium 3.7 (3.5-5.1) mmol/L Chloride 99 (98-107) mmol/L Carbon Dioxide 20.5 L (21.0-32.0) mmol/L Anion Gap 10.5 (3-11) mmol/L BUN 22 H (7-18) mg/dL Creatinine 1.6 H (0.70-1.30) mg/dL Est GFR (CKD-EPI 2020) 45.50 (mL/min/1.73m2) Glucose 269 H (74-106) mg/dL Calcium 8.2 L (8.5-10.1) mg/dL Magnesium Pending Pending Total Bilirubin Pending (0.2-1.0) mg/dL Conjugated Bilirubin Pending AST Pending (15-37) U/L ALT Pending (16-63) U/L Alkaline Phosphatase Pending (46-116) U/L Troponin I 32 (<or=76) ng/L Total Protein Pending (6.4-8.2) g/dL Albumin Pending (3.4-5.0) g/dL TSH Pending Urine Color (Yellow) Urine Clarity (Clear) Urine pH (5-8) Ur Specific [place] (1.005-1.025) Urine Protein (Neg-Trace) mg/dL Urine Ketones (Negative) mg/dL Urine Blood (Negative) Urine Nitrite (Negative) Urine Bilirubin (Negative) Urine Urobilinogen (Up to 0.2) mg/dL Ur Leukocyte Esterase (Negative) Urine RBC (0-2) HPF Urine WBC (0-5) HPF Ur Epithelial Cells (Negative) HPF Urine Crystals (Negative) HPF Urine Bacteria (Negative) HPF Urine Casts (Negative) LPF Urine Mucus (Negative) Ur Culture Indicated? Urine Glucose (Negative) mg/dL COVID-19 Source SARS-CoV-2 (PCR) (Negative) Influenza Type A (PCR) (Negative) Influenza Type B (PCR) (Negative) RSV (PCR) (Negative) Path Cons Comment 08/22/24 08/22/24 08/22/24 Range/Units 19:41 17:20 16:08 WBC (4.4-10.8) 10^3/uL RBC (4.36-5.78) 10^6/uL Hgb (13.5-17.5) g/dL Hct (40.0-50.0) % MCV (80-95) fL MCH (27.0-33.0) pg MCHC (32.0-36.0) % RDW (11.8-14.1) % Plt Count (130-400) 10^3/uL MPV (8.0-11.0) fL Immature Gran % % Neutrophils % % Band Neutrophils % % Lymphocytes % % Atypical Lymphs % % Monocytes % % Eosinophils % % Basophils % % Nucleated RBC % (0.0-0.3) % Absolute Neutrophils (1.2-6.7) 10^3/uL Absolute Lymphocytes (1.2-3.4) 10^3/uL Absolute Monocytes (0.1-0.8) 10^3/uL Absolute Eosinophils (0.0-0.7) 10^3/uL Absolute Basophils (0.0-0.2) 10^3/uL RBC Morphology PT INR VBG pH (7.31-7.41) VBG pCO2 (41-51) mmHg VBG pO2 mmHg VBG HCO3 (23-28) mmol/L VBG Total CO2 (24-29) mmol/L VBG O2 Saturation % VBG Base Excess (-2-3) mmol/L VBG Lactate (<or=2.0) mmol/L Sodium (136-145) mmol/L Potassium (3.5-5.1) mmol/L Chloride (98-107) mmol/L Carbon Dioxide (21.0-32.0) mmol/L Anion Gap (3-11) mmol/L BUN (7-18) mg/dL Creatinine (0.70-1.30) mg/dL Est GFR (CKD-EPI 2020) (mL/min/1.73m2) Glucose (74-106) mg/dL Calcium (8.5-10.1) mg/dL Magnesium Total Bilirubin (0.2-1.0) mg/dL Conjugated Bilirubin AST (15-37) U/L ALT (16-63) U/L Alkaline Phosphatase (46-116) U/L Troponin I 36 (<or=76) ng/L Total Protein (6.4-8.2) g/dL Albumin (3.4-5.0) g/dL TSH Urine Color Yellow (Yellow) Urine Clarity Clear (Clear) Urine pH 5.0 (5-8) Ur Specific [place] 1.015 (1.005-1.025) Urine Protein 100 H (Neg-Trace) mg/dL Urine Ketones 40 H (Negative) mg/dL Urine Blood Small H (Negative) Urine Nitrite Negative (Negative) Urine Bilirubin Negative (Negative) Urine Urobilinogen 0.2 (Up to 0.2) mg/dL Ur Leukocyte Esterase Negative (Negative) Urine RBC 0-2 (0-2) HPF Urine WBC 0-2 (0-5) HPF Ur Epithelial Cells Rare (Negative) HPF Urine Crystals Negative (Negative) HPF Urine Bacteria Rare (Negative) HPF Urine Casts 0-2 Hyaline (Negative) LPF Urine Mucus Trace (Negative) Ur Culture Indicated? No Urine Glucose >=1000 H (Negative) mg/dL COVID-19 Source Nasopharynx SARS-CoV-2 (PCR) Negative (Negative) Influenza Type A (PCR) Negative (Negative) Influenza Type B (PCR) Negative (Negative) RSV (PCR) Negative (Negative) Path Cons Comment 08/22/24 Range/Units 15:50 WBC 0.26 L* (4.4-10.8) 10^3/uL RBC 3.87 L (4.36-5.78) 10^6/uL Hgb 11.5 L (13.5-17.5) g/dL Hct 33.7 L (40.0-50.0) % MCV 87 (80-95) fL MCH 29.7 (27.0-33.0) pg MCHC 34.1 (32.0-36.0) % RDW 13.4 (11.8-14.1) % Plt Count 80 L (130-400) 10^3/uL MPV 10.3 (8.0-11.0) fL Immature Gran % 0.0 % Neutrophils % 20.0 % Band Neutrophils % 20 % Lymphocytes % 32.0 % Atypical Lymphs % 4 % Monocytes % 16.0 % Eosinophils % 4.0 % Basophils % 4.0 % Nucleated RBC % 0.0 (0.0-0.3) % Absolute Neutrophils 0.10 L* (1.2-6.7) 10^3/uL Absolute Lymphocytes 0.09 L (1.2-3.4) 10^3/uL Absolute Monocytes 0.04 L (0.1-0.8) 10^3/uL Absolute Eosinophils 0.01 (0.0-0.7) 10^3/uL Absolute Basophils 0.01 (0.0-0.2) 10^3/uL RBC Morphology Normal PT INR VBG pH 7.45 H (7.31-7.41) VBG pCO2 28 L (41-51) mmHg VBG pO2 99 mmHg VBG HCO3 19 L (23-28) mmol/L VBG Total CO2 17 L (24-29) mmol/L VBG O2 Saturation 98 % VBG Base Excess -5 L (-2-3) mmol/L VBG Lactate 1.9 (<or=2.0) mmol/L Sodium 132 L (136-145) mmol/L Potassium 3.7 (3.5-5.1) mmol/L Chloride 99 (98-107) mmol/L Carbon Dioxide 19.8 L (21.0-32.0) mmol/L Anion Gap 13.2 H (3-11) mmol/L BUN 22 H (7-18) mg/dL Creatinine 1.7 H (0.70-1.30) mg/dL Est GFR (CKD-EPI 2020) 42.30 (mL/min/1.73m2) Glucose 314 H (74-106) mg/dL Calcium 8.5 (8.5-10.1) mg/dL Magnesium Total Bilirubin 1.5 H (0.2-1.0) mg/dL Conjugated Bilirubin AST 13 L (15-37) U/L ALT 30 (16-63) U/L Alkaline Phosphatase 61 (46-116) U/L Troponin I 35 (<or=76) ng/L Total Protein 6.4 (6.4-8.2) g/dL Albumin 2.7 L (3.4-5.0) g/dL TSH Urine Color (Yellow) Urine Clarity (Clear) Urine pH (5-8) Ur Specific [place] (1.005-1.025) Urine Protein (Neg-Trace) mg/dL Urine Ketones (Negative) mg/dL Urine Blood (Negative) Urine Nitrite (Negative) Urine Bilirubin (Negative) Urine Urobilinogen (Up to 0.2) mg/dL Ur Leukocyte Esterase (Negative) Urine RBC (0-2) HPF Urine WBC (0-5) HPF Ur Epithelial Cells (Negative) HPF Urine Crystals (Negative) HPF Urine Bacteria (Negative) HPF Urine Casts (Negative) LPF Urine Mucus (Negative) Ur Culture Indicated? Urine Glucose (Negative) mg/dL COVID-19 Source SARS-CoV-2 (PCR) (Negative) Influenza Type A (PCR) (Negative) Influenza Type B (PCR) (Negative) RSV (PCR) (Negative) Path Cons Comment Pending 08/22/24 06:05 Blood Culture - Pending Blood 08/22/24 15:50 Blood Culture - Pending Blood [id number]-[id number] Documentation Fingerstick Glucose Start: 08/22/24 22:46 Freq: .Q2H Status: Active Protocol: Activity Type Activity Date Activity User E-sign Co-sign Detail Recorded Client Recorded Date Recorded By Document 08/22/24 23:11 IntervolveAshley DAEMON(3) [id number] 08/22/24 23:11 BKG DAEMON(4) Intake and Output - 24 Hour Total 08/22/24 15:21 thru 08/22/24 23:07 Intake Total 1500 Output Total 750 Balance 750 Weight 103 kg Intake: IV 1500 Output: Urine 750 Other: # Voids 1 Falls Risk Assessment History of Falls No History 08/22/24 22:55 Contributing Factors Incontinence 08/22/24 22:55 Ambulatory Aids Independent 08/22/24 22:55 Tubes/Lines W/no contributing factors 08/22/24 22:55 Gait Evaluation No gait disturbance 08/22/24 22:55 Cognition No cognitive impairment 08/22/24 22:55 Fall Total Score 13 08/22/24 22:55 Level of Risk Standard/Low Risk 08/22/24 22:55 Problems (Last Reviewed 08/22/24 @ 23:35 by Shaggy Castro) DKA (diabetic ketoacidosis) (Acute) Hypothyroidism (acquired) (Acute) Diffuse large B-cell lymphoma (Acute) Diverticulitis large intestine w/o perforation or abscess w/o bleeding (Acute) CKD (chronic kidney disease) stage 3, GFR 30-59 ml/min (Acute) Diabetes type 2, controlled (Acute) Neutropenic fever (Acute) Notes 08/22/24 16:55 Nursing Notes by Doug Allen Nursing Note: Critical values received from lab: WBC = 0.26 & Absolute Neutrophils = 0.10 Results delivered to AINSLEY Flower and Dr. Don, ED provider Initialized on 08/22/24 16:55 - END OF NOTE v v v v v v v v v Sending and/or Receiving Nurses: Please use comment section below to note any information pertinent to the patient hand-off not included above. Information / Comments: Report received from: Rudi Mullins RN all questions answere: yes
[2024-08-23 00:21] LABS: Magnesium 1.6 mg/dL (1.8-2.4); TSH 3.46 uIU/mL (0.36-3.74)
[2024-08-23] MEDS: Normal Saline Flush 10 ML SYR IVP ×5 (00:51→23:53)
[2024-08-23] MEDS: Acetaminophen 325 MG TAB PO ×4 (04:43→16:38)
[2024-08-23 06:23] LABS: HCT 35.3 % (40.0-50.0); HGB 11.8 g/dL (13.5-17.5); MCH 29.9 pg (27.0-33.0); MCHC 33.4 % (32.0-36.0); MCV 89 fL (80-95); MPV 10.4 fL (8.0-11.0); RBC 3.95 10^6/uL (4.36-5.78); RDW 13.6 % (11.8-14.1); RDW-SD 44.9 fL
[2024-08-23 06:34] LABS: INR 1.2 (0.9-1.1); Prothrombin Time 11.8 sec (9.1-11.1)
[2024-08-23 06:44] LABS: ALT 26 U/L (16-63); AST 11 U/L (15-37); Albumin 2.4 g/dL (3.4-5.0); Alkaline Phosphatase 56 U/L (46-116); Bilirubin, Direct 0.3 mg/dL (0.0-0.2); Bilirubin, Total 0.7 mg/dL (0.2-1.0); Magnesium 1.8 mg/dL (1.8-2.4); Total Protein 6.4 g/dL (6.4-8.2)
[2024-08-23] MEDS: Normal Saline 1,000 ML 150 ML IV ×3 (06:51→21:39)
[2024-08-23] MEDS: Levothyroxine 75 MCG TAB PO (06:51)
[2024-08-23 06:56] LABS: Platelet Count 55 10^3/uL (130-400); WBC 0.54 10^3/uL (4.4-10.8)
[2024-08-23] MEDS: Cholecalciferol (Vitamin D3) 1,000 UNIT TAB 1000 UNITS PO (08:57)
[2024-08-23] MEDS: CEFEPIME 2 GM in Normal Saline 100 ML IVPB ×3 (08:59→23:53)
[2024-08-23] MEDS: Atorvastatin 10 MG TAB PO (08:59)
--- NOTE | 2024-08-23 09:25 | W.PM.PROGNOT ---
Date of Service Date of service: 08/23/24 Time of Service: 09:25 Assessment and Plan Assessment and plan (1) Neutropenic fever: Start date: 08/22/24 Status: Acute Assessment and plan: -recent dx of lymphoma and first round of chemo about 1 week ago -ANC 100 on admission -patient also with likley diverticulitis as source of infection as seen on CT -started on vanc, cefepime and acyclovir, will continue and monitor ANC (2) Diverticulitis large intestine w/o perforation or abscess w/o bleeding: Start date: 08/22/24 Status: Acute Assessment and plan: -as noted above (3) Diffuse large B-cell lymphoma: Status: Acute Assessment and plan: -Recent diagnosis with an initiation of therapy recently. -Continue to follow-up with hematology/oncology (4) Diabetes type 2, controlled: Status: Chronic Assessment and plan: -SSI, CCD (5) CKD (chronic kidney disease) stage 3, GFR 30-59 ml/min: Status: Chronic Assessment and plan: -At baseline creatinine (6) Hypertension: Assessment and plan: -Continue outpatient medical therapy (7) Hypothyroidism (acquired): Status: Chronic Assessment and plan: -continue outpatient synthroid Subjective Subjective Interval history since last seen: Patient states that he is feeling better though he continues to have some abdominal discomfort. Exam Narrative Exam Narrative: well appearing older gentleman laying in bed in no acute distress, AOx4, heart RRR, lungs CTAB, abdomen soft with mild diffuse tenderness to palpation but without rebound or guarding Objective Last Vital Signs Temp 99.9 F H 08/23/24 06:01 Pulse 102 H 08/23/24 06:01 Resp 19 08/23/24 06:01 BP 107/64 08/23/24 06:01 Pulse Ox 97 08/23/24 06:01 Laboratory Results - last 24 hr 08/22/24 08/22/24 08/22/24 15:50 16:08 17:20 WBC 0.26 L* RBC 3.87 L Hgb 11.5 L Hct 33.7 L MCV 87 MCH 29.7 MCHC 34.1 RDW 13.4 Plt Count 80 L MPV 10.3 Immature Gran % 0.0 Neutrophils % 20.0 Band Neutrophils % 20 Lymphocytes % 32.0 Atypical Lymphs % 4 Monocytes % 16.0 Eosinophils % 4.0 Basophils % 4.0 Nucleated RBC % 0.0 Absolute Neutrophils 0.10 L* Absolute Lymphocytes 0.09 L Absolute Monocytes 0.04 L Absolute Eosinophils 0.01 Absolute Basophils 0.01 RBC Morphology Normal PT INR VBG pH 7.45 H VBG pCO2 28 L VBG pO2 99 VBG HCO3 19 L VBG Total CO2 17 L VBG O2 Saturation 98 VBG Base Excess -5 L VBG Lactate 1.9 Sodium 132 L Potassium 3.7 Chloride 99 Carbon Dioxide 19.8 L Anion Gap 13.2 H BUN 22 H Creatinine 1.7 H Est GFR (CKD-EPI 2020) 42.30 Glucose 314 H Calcium 8.5 Magnesium Total Bilirubin 1.5 H Conjugated Bilirubin AST 13 L ALT 30 Alkaline Phosphatase 61 Troponin I 35 36 Total Protein 6.4 Albumin 2.7 L TSH Urine Color Urine Clarity Urine pH Ur Specific [place] Urine Protein Urine Ketones Urine Blood Urine Nitrite Urine Bilirubin Urine Urobilinogen Ur Leukocyte Esterase Urine RBC Urine WBC Ur Epithelial Cells Urine Crystals Urine Bacteria Urine Casts Urine Mucus Ur Culture Indicated? Urine Glucose COVID-19 Source Nasopharynx SARS-CoV-2 (PCR) Negative Influenza Type A (PCR) Negative Influenza Type B (PCR) Negative RSV (PCR) Negative Add-On Test Request 08/22/24 08/22/24 08/22/24 19:41 20:00 23:10 WBC RBC Hgb Hct MCV MCH MCHC RDW Plt Count MPV Immature Gran % Neutrophils % Band Neutrophils % Lymphocytes % Atypical Lymphs % Monocytes % Eosinophils % Basophils % Nucleated RBC % Absolute Neutrophils Absolute Lymphocytes Absolute Monocytes Absolute Eosinophils Absolute Basophils RBC Morphology PT INR VBG pH VBG pCO2 VBG pO2 VBG HCO3 VBG Total CO2 VBG O2 Saturation VBG Base Excess VBG Lactate Sodium 130 L Potassium 3.7 Chloride 99 Carbon Dioxide 20.5 L Anion Gap 10.5 BUN 22 H Creatinine 1.6 H Est GFR (CKD-EPI 2020) 45.50 Glucose 269 H Calcium 8.2 L Magnesium 1.6 L Total Bilirubin Conjugated Bilirubin AST ALT Alkaline Phosphatase Troponin I 32 Total Protein Albumin TSH 3.46 Urine Color Yellow Urine Clarity Clear Urine pH 5.0 Ur Specific [place] 1.015 Urine Protein 100 H Urine Ketones 40 H Urine Blood Small H Urine Nitrite Negative Urine Bilirubin Negative Urine Urobilinogen 0.2 Ur Leukocyte Esterase Negative Urine RBC 0-2 Urine WBC 0-2 Ur Epithelial Cells Rare Urine Crystals Negative Urine Bacteria Rare Urine Casts 0-2 Hyaline Urine Mucus Trace Ur Culture Indicated? No Urine Glucose >=1000 H COVID-19 Source SARS-CoV-2 (PCR) Influenza Type A (PCR) Influenza Type B (PCR) RSV (PCR) Add-On Test Request 08/23/24 05:50 WBC 0.54 L* RBC 3.95 L Hgb 11.8 L Hct 35.3 L MCV 89 MCH 29.9 MCHC 33.4 RDW 13.6 Plt Count 55 L MPV 10.4 Immature Gran % Neutrophils % Band Neutrophils % Lymphocytes % Atypical Lymphs % Monocytes % Eosinophils % Basophils % Nucleated RBC % Absolute Neutrophils Absolute Lymphocytes Absolute Monocytes Absolute Eosinophils Absolute Basophils RBC Morphology PT 11.8 H INR 1.2 H VBG pH VBG pCO2 VBG pO2 VBG HCO3 VBG Total CO2 VBG O2 Saturation VBG Base Excess VBG Lactate Sodium Potassium Chloride Carbon Dioxide Anion Gap BUN Creatinine Est GFR (CKD-EPI 2020) Glucose Calcium Magnesium 1.8 Total Bilirubin 0.7 Conjugated Bilirubin 0.3 H AST 11 L ALT 26 Alkaline Phosphatase 56 Troponin I Total Protein 6.4 Albumin 2.4 L TSH Urine Color Urine Clarity Urine pH Ur Specific [place] Urine Protein Urine Ketones Urine Blood Urine Nitrite Urine Bilirubin Urine Urobilinogen Ur Leukocyte Esterase Urine RBC Urine WBC Ur Epithelial Cells Urine Crystals Urine Bacteria Urine Casts Urine Mucus Ur Culture Indicated? Urine Glucose COVID-19 Source SARS-CoV-2 (PCR) Influenza Type A (PCR) Influenza Type B (PCR) RSV (PCR) Add-On Test Request DONE Time Spent with Patient Time Spent with Patient: >50 minutes Time was spent: preparing to see the patient(eg.review tests), obtaining and/or reviewing separately otained hiistory, ordering medications,tests, procedures, referring, communicating with other health patient care secretary, indepentently interpreting results, counseling the patient and care coordination
[2024-08-23 09:37] LABS: Absolute Basophil Count 0.01 10^3/uL (0.0-0.2)
[2024-08-23 10:20] LABS: Absolute Eosinophil Count 0.02 10^3/uL (0.0-0.7); Absolute Lymphocyte Count 0.18 10^3/uL (1.2-3.4); Absolute Monocyte Count 0.08 10^3/uL (0.1-0.8); Bands % 6 %; Diff Comment Manual Differential; RBC Morphology Normal
[2024-08-23 10:21] LABS: Absolute Neutrophil Count 0.25 10^3/uL (1.2-6.7)
--- NOTE | 2024-08-23 10:32 | NUR.NOTE ---
Accessed chart to reconcile orders for EKG with EKG?s in [facility]. Duplicate order cancelled. Nursing Note:
--- NOTE | 2024-08-23 12:10 | INITIAL_ITS ---
Date of service: 08/23/24 Time of Service: 12:10 Care Management Initial Assmt Initial Assessment Reason for Hospitalization: diverticulitis, neutropenic fever Functional Status/Living Situation Patient Presentation: Shaggy was lying in bed when CM met with him. He stated that he is doing well, and his needs are met here at the hospital. His , Floresita Adan, was in the room visiting. 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 Per report, Shaggy is receiving IV antibiotics, and will continue to be closely monitored on neutropenic precautions. Shaggy does not anticipate the need of any community services or support upon discharge, at this time. CM will continue to follow. Town of Residence: [place] Resides with: Spouse (Floresita Adan) Significant Other/Family: Local Natural Supports: large, supportive family Employment Status: Employed ([employer]) Instrumental Activities of Daily Living (ADLs): Independent Medications Medication Management: No Issues/Barriers identified Advance Directives Advance Directives: Do you have an Advance Directive: N 02/10/15 08:03 AD On File at [facility]: N 09/01/13 10:11 Date Asked 08/22/24 08/22/24 21:44 AD Date Reviewed COLST On File at [facility] No 08/22/24 21:44 COLST Date Scanned Code Status Resuscitation Status Full Code Insurance Coverage/Financial Issues Insurance: / Care Team Visit Care Team Role Provider Type Johnathan Molina MD MD [facility] STAFF PHYSICIAN Aly Varela Primary Care Provider NON-[facility] STAFF PHYSICIAN Angy Garcia MD Emergency Provider [facility] STAFF PHYSICIAN Shaggy Castro Admit Provider NON-[facility] STAFF PHYSICIAN Attending Provider Discharge Potential Discharge Needs: PCP F/U Appt Anticipated Barriers to Discharge: None Identified Patient/Family Education Needs: Review discharge instructions, discuss Ask Me Three Transportation: Private vehicle Plan: Anticipate Shaggy will return home once medically cleared. His will drive him home via private vehicle. He will follow up with his PCP and discharge plan of care. CM will continue to follow. Social Determinants of Health Screening Social Determinants of health last assessed in clinic: 08/23/24 Will the Patient Participate in the Screening?: Yes Do you worry about having a steady place to live?: no Problems where you live: no known problems In the past 12 months, have you had to go without electric, gas, oil or water in your home?: no 1. Within the past 12 months, we worried whether our food would run out before we got money to buy more.: Never true 2. Within the past 12 months, the food we bought just didn't last and we didn't have money to get more.: Never true Has lack of transportation kept you from medical appointments or from doing things needed for daily living?: no Has anyone in your life made you feel unsafe or unsupported?: no How hard is it for you to pay for the very basics like food, housing, medical care, and heating? Would you say it is:: Not hard at all Do you want help finding or keeping work or a job?: I do not need or want help If for any reason you need help with day-to-day activities such as bathing, preparing meals, shopping, managing finances, etc., do you get the help you need?: I don?t need any help How often do you feel lonely or isolated from those around you?: Never Do you speak a language other than Thai at home?: No Does the patient want assistance with any of the above?: No Health Related Social Needs Health related social needs details: none PFSH All Active Problems (Updated 08/23/24 @ 03:02 by Shaggy Castro) DKA (diabetic ketoacidosis) (Acute) Hypothyroidism (acquired) (Chronic) Diffuse large B-cell lymphoma (Acute) Diverticulitis large intestine w/o perforation or abscess w/o bleeding (Acute) CKD (chronic kidney disease) stage 3, GFR 30-59 ml/min (Chronic) Diabetes type 2, controlled (Chronic) Neutropenic fever (Acute) Enlarged lymph nodes (Acute) Medical History Hypertension Nephrolithiasis Diverticulosis Surgical History Colonoscopy - [facility] (02/13/17) Social History Smoking/Tobacco Use Status: Former Tobacco Use Smoking risk assessment performed?: Yes Alcohol Intake: former Drug use: Never Substance use type: does not use Housing: house
[2024-08-23] MEDS: Prochlorperazine 10 MG TAB PO ×2 (13:03→21:20)
[2024-08-23] MEDS: VANCOMYCIN 1,250 MG in Normal Saline 250 ML 166.667 MG IVPB (14:07)
--- NOTE | 2024-08-23 18:01 | W.PC.ACHO ---
Registration Status: Primary Language: Preferred Language: ED Information & Data Chief Complaint AMS/LOC 08/22/24 15:43 Chief Complaint AMS/LOC 08/22/24 15:35 Triage Note patient brought in by EMS 08/22/24 15:35 with h/o know B cell lymphoma with treatment started a week ago. Yesterday complaint of weakness, incontinent, confusion. Patient has right Medi-port not accessed. enroute ems gave IV tylenol Medical / Surgical History (Last Reviewed 08/22/24 @ 23:35 by Shaggy Castro) Hypertension Nephrolithiasis Diverticulosis (Last Reviewed 08/22/24 @ 23:35 by Shaggy Castro) Colonoscopy - MAC (02/13/17) Most Recent Vital Signs Temperature 36.4 C L 08/23/24 17:42 Temperature Source Temporal Artery Scan 08/23/24 17:42 Pulse 115 H 08/23/24 17:42 Pulse 107 H 08/23/24 17:01 Respiratory Rate 16 08/23/24 17:42 Respiratory Effort Normal, Non-Labored 08/22/24 22:55 Respiratory Depth Normal 08/22/24 22:55 Respiratory Pattern Normal 08/22/24 22:55 Blood Pressure 103/70 08/23/24 17:42 Blood Pressure Mean 81 08/23/24 17:42 Blood Pressure Position Supine 08/22/24 22:55 Pulse Oximetry 96 08/23/24 17:42 Oxygen Delivery Method Room Air 08/23/24 17:42 Oxygen Flow Rate 0 08/23/24 17:42 Pain Level 4 08/23/24 16:38 Allergies No Known Allergies Allergy (Unverified 05/06/24 07:36) Precautions Isolation PUI 08/22/24 15:43 Active Medications Generic Name Dose Route Start Last Admin Trade Name Freq PRN Reason Stop Dose Admin Acetaminophen 0 mg 08/22/24 22:46 08/23/24 16:38 Acetaminophen 325 Mg Tab PO 650 mg Q4H PRN PRN Administration Atorvastatin Calcium 10 mg 08/23/24 08:30 08/23/24 08:59 Atorvastatin 10 Mg Tab PO 10 mg DAILY LINDA Administration Cholecalciferol 1,000 units 08/23/24 08:30 08/23/24 08:57 Cholecalciferol (Vitamin D3) 1,000 Unit Tab PO 1,000 units DAILY LINDA Administration Sodium Chloride 1,000 mls @ 150 mls/hr 08/22/24 22:46 08/23/24 14:07 Saline 1000ml Bag IV 150 mls/hr INFUSION LINDA Administration Cefepime HCl 2 gm/ Sodium 100 mls @ 200 mls/hr 08/23/24 00:00 08/23/24 16:35 Chloride IVPB 200 mls/hr Q8H LINDA Administration Insulin Aspart 0 units 08/23/24 00:00 08/23/24 16:41 Insulin Aspart 300 Units/3 Ml Pen SC 3 units Q4H LINDA Administration Protocol Levothyroxine Sodium 75 mcg 08/23/24 06:00 08/23/24 06:51 Levothyroxine 75 Mcg Tab PO 75 mcg 0600 LINDA Administration Prochlorperazine Maleate 10 mg 08/22/24 22:46 08/23/24 13:03 Prochlorperazine 10 Mg Tab PO 10 mg Q4H PRN PRN Administration Sodium Chloride 0 ml 08/22/24 22:46 08/23/24 00:51 Normal Saline Flush 10 Ml Syr IVP 20 ml PRN PRN Administration Sodium Chloride 0 ml 08/23/24 08:30 08/23/24 08:30 Normal Saline Flush 10 Ml Syr IVP 20 ml BID LINDA Administration IV IV Catheter Type [Left Forearm Saline Lock ] IV Catheter Type [Right Peripheral IV Forearm] IV Catheter Gauge [Left 20 Forearm] IV Catheter Gauge [Right 18 Forearm] Diagnostics 08/23/24 08/23/24 08/23/24 Range/Units 05:50 05:50 05:50 WBC (4.4-10.8) 10^3/uL RBC (4.36-5.78) 10^6/uL Hgb (13.5-17.5) g/dL Hct (40.0-50.0) % MCV (80-95) fL MCH (27.0-33.0) pg MCHC (32.0-36.0) % RDW (11.8-14.1) % Plt Count (130-400) 10^3/uL MPV (8.0-11.0) fL Immature Gran % % Neutrophils % % Band Neutrophils % % Lymphocytes % % Atypical Lymphs % Monocytes % % Eosinophils % % Basophils % % Metamyelocytes % Myelocytes % Promyelocytes % Other Cells % Absolute Neutrophils (1.2-6.7) 10^3/uL Absolute Lymphocytes (1.2-3.4) 10^3/uL Absolute Monocytes (0.1-0.8) 10^3/uL Absolute Eosinophils Cancelled (0.0-0.7) 10^3/uL Absolute Basophils Cancelled 0.01 (0.0-0.2) 10^3/uL RBC Morphology Cancelled Normal Polychromasia Cancelled Hypochromasia Cancelled Poikilocytosis Cancelled Basophilic Stippling Cancelled Anisocytosis Cancelled Microcytosis Cancelled Macrocytosis Cancelled Spherocytes Cancelled Tear Drop Cells Cancelled Ovalocytes Cancelled Stomatocytes Cancelled [place] Bodies Cancelled [place] Cells/Echinocytes Cancelled Acanthocytes (Spur) Cancelled Schistocytes Cancelled PT 11.8 H (9.1-11.1) sec INR 1.2 H (0.9-1.1) Sodium (136-145) mmol/L Potassium (3.5-5.1) mmol/L Chloride (98-107) mmol/L Carbon Dioxide (21.0-32.0) mmol/L Anion Gap (3-11) mmol/L BUN (7-18) mg/dL Creatinine (0.70-1.30) mg/dL Est GFR (CKD-EPI 2020) (mL/min/1.73m2) Glucose (74-106) mg/dL Calcium (8.5-10.1) mg/dL Magnesium 1.8 (1.8-2.4) mg/dL Total Bilirubin 0.7 (0.2-1.0) mg/dL Conjugated Bilirubin 0.3 H (0.0-0.2) mg/dL AST 11 L (15-37) U/L ALT 26 (16-63) U/L Alkaline Phosphatase 56 (46-116) U/L Troponin I (<or=76) ng/L Total Protein 6.4 (6.4-8.2) g/dL Albumin 2.4 L (3.4-5.0) g/dL TSH (0.36-3.74) uIU/mL Urine Color (Yellow) Urine Clarity (Clear) Urine pH (5-8) Ur Specific [place] (1.005-1.025) Urine Protein (Neg-Trace) mg/dL Urine Ketones (Negative) mg/dL Urine Blood (Negative) Urine Nitrite (Negative) Urine Bilirubin (Negative) Urine Urobilinogen (Up to 0.2) mg/dL Ur Leukocyte Esterase (Negative) Urine RBC (0-2) HPF Urine WBC (0-5) HPF Ur Epithelial Cells (Negative) HPF Urine Crystals (Negative) HPF Urine Bacteria (Negative) HPF Urine Casts (Negative) LPF Urine Mucus (Negative) Ur Culture Indicated? Urine Glucose (Negative) mg/dL Add-On Test Request Cancelled 08/23/24 08/23/24 08/23/24 Range/Units 05:50 05:50 05:50 WBC (4.4-10.8) 10^3/uL RBC (4.36-5.78) 10^6/uL Hgb (13.5-17.5) g/dL Hct (40.0-50.0) % MCV (80-95) fL MCH (27.0-33.0) pg MCHC (32.0-36.0) % RDW (11.8-14.1) % Plt Count (130-400) 10^3/uL MPV (8.0-11.0) fL Immature Gran % % Neutrophils % % Band Neutrophils % % Lymphocytes % % Atypical Lymphs % Monocytes % % Eosinophils % % Basophils % % Metamyelocytes % Myelocytes % Promyelocytes % Other Cells % Absolute Neutrophils Cancelled (1.2-6.7) 10^3/uL Absolute Lymphocytes Cancelled 0.18 L (1.2-3.4) 10^3/uL Absolute Monocytes Cancelled 0.08 L (0.1-0.8) 10^3/uL Absolute Eosinophils 0.02 (0.0-0.7) 10^3/uL Absolute Basophils (0.0-0.2) 10^3/uL RBC Morphology Polychromasia Hypochromasia Poikilocytosis Basophilic Stippling Anisocytosis Microcytosis Macrocytosis Spherocytes Tear Drop Cells Ovalocytes Stomatocytes [place] Bodies [place] Cells/Echinocytes Acanthocytes (Spur) Schistocytes PT (9.1-11.1) sec INR (0.9-1.1) Sodium (136-145) mmol/L Potassium (3.5-5.1) mmol/L Chloride (98-107) mmol/L Carbon Dioxide (21.0-32.0) mmol/L Anion Gap (3-11) mmol/L BUN (7-18) mg/dL Creatinine (0.70-1.30) mg/dL Est GFR (CKD-EPI 2020) (mL/min/1.73m2) Glucose (74-106) mg/dL Calcium (8.5-10.1) mg/dL Magnesium (1.8-2.4) mg/dL Total Bilirubin (0.2-1.0) mg/dL Conjugated Bilirubin (0.0-0.2) mg/dL AST (15-37) U/L ALT (16-63) U/L Alkaline Phosphatase (46-116) U/L Troponin I (<or=76) ng/L Total Protein (6.4-8.2) g/dL Albumin (3.4-5.0) g/dL TSH (0.36-3.74) uIU/mL Urine Color (Yellow) Urine Clarity (Clear) Urine pH (5-8) Ur Specific [place] (1.005-1.025) Urine Protein (Neg-Trace) mg/dL Urine Ketones (Negative) mg/dL Urine Blood (Negative) Urine Nitrite (Negative) Urine Bilirubin (Negative) Urine Urobilinogen (Up to 0.2) mg/dL Ur Leukocyte Esterase (Negative) Urine RBC (0-2) HPF Urine WBC (0-5) HPF Ur Epithelial Cells (Negative) HPF Urine Crystals (Negative) HPF Urine Bacteria (Negative) HPF Urine Casts (Negative) LPF Urine Mucus (Negative) Ur Culture Indicated? Urine Glucose (Negative) mg/dL Add-On Test Request 08/23/24 08/23/24 08/23/24 Range/Units 05:50 05:50 05:50 WBC (4.4-10.8) 10^3/uL RBC (4.36-5.78) 10^6/uL Hgb (13.5-17.5) g/dL Hct (40.0-50.0) % MCV (80-95) fL MCH (27.0-33.0) pg MCHC (32.0-36.0) % RDW (11.8-14.1) % Plt Count (130-400) 10^3/uL MPV (8.0-11.0) fL Immature Gran % % Neutrophils % % Band Neutrophils % % Lymphocytes % % Atypical Lymphs % Monocytes % Cancelled % Eosinophils % Cancelled 4.0 % Basophils % Cancelled 1.0 % Metamyelocytes % Cancelled Myelocytes % Cancelled Promyelocytes % Cancelled Other Cells % Cancelled Absolute Neutrophils 0.25 L* (1.2-6.7) 10^3/uL Absolute Lymphocytes (1.2-3.4) 10^3/uL Absolute Monocytes (0.1-0.8) 10^3/uL Absolute Eosinophils (0.0-0.7) 10^3/uL Absolute Basophils (0.0-0.2) 10^3/uL RBC Morphology Polychromasia Hypochromasia Poikilocytosis Basophilic Stippling Anisocytosis Microcytosis Macrocytosis Spherocytes Tear Drop Cells Ovalocytes Stomatocytes [place] Bodies [place] Cells/Echinocytes Acanthocytes (Spur) Schistocytes PT (9.1-11.1) sec INR (0.9-1.1) Sodium (136-145) mmol/L Potassium (3.5-5.1) mmol/L Chloride (98-107) mmol/L Carbon Dioxide (21.0-32.0) mmol/L Anion Gap (3-11) mmol/L BUN (7-18) mg/dL Creatinine (0.70-1.30) mg/dL Est GFR (CKD-EPI 2020) (mL/min/1.73m2) Glucose (74-106) mg/dL Calcium (8.5-10.1) mg/dL Magnesium (1.8-2.4) mg/dL Total Bilirubin (0.2-1.0) mg/dL Conjugated Bilirubin (0.0-0.2) mg/dL AST (15-37) U/L ALT (16-63) U/L Alkaline Phosphatase (46-116) U/L Troponin I (<or=76) ng/L Total Protein (6.4-8.2) g/dL Albumin (3.4-5.0) g/dL TSH (0.36-3.74) uIU/mL Urine Color (Yellow) Urine Clarity (Clear) Urine pH (5-8) Ur Specific [place] (1.005-1.025) Urine Protein (Neg-Trace) mg/dL Urine Ketones (Negative) mg/dL Urine Blood (Negative) Urine Nitrite (Negative) Urine Bilirubin (Negative) Urine Urobilinogen (Up to 0.2) mg/dL Ur Leukocyte Esterase (Negative) Urine RBC (0-2) HPF Urine WBC (0-5) HPF Ur Epithelial Cells (Negative) HPF Urine Crystals (Negative) HPF Urine Bacteria (Negative) HPF Urine Casts (Negative) LPF Urine Mucus (Negative) Ur Culture Indicated? Urine Glucose (Negative) mg/dL Add-On Test Request 08/23/24 08/23/24 08/23/24 Range/Units 05:50 05:50 05:50 WBC (4.4-10.8) 10^3/uL RBC (4.36-5.78) 10^6/uL Hgb (13.5-17.5) g/dL Hct (40.0-50.0) % MCV (80-95) fL MCH (27.0-33.0) pg MCHC (32.0-36.0) % RDW (11.8-14.1) % Plt Count (130-400) 10^3/uL MPV (8.0-11.0) fL Immature Gran % % Neutrophils % Cancelled % Band Neutrophils % Cancelled 6 % Lymphocytes % Cancelled 34.0 % Atypical Lymphs % Cancelled Monocytes % 15.0 % Eosinophils % % Basophils % % Metamyelocytes % Myelocytes % Promyelocytes % Other Cells % Absolute Neutrophils (1.2-6.7) 10^3/uL Absolute Lymphocytes (1.2-3.4) 10^3/uL Absolute Monocytes (0.1-0.8) 10^3/uL Absolute Eosinophils (0.0-0.7) 10^3/uL Absolute Basophils (0.0-0.2) 10^3/uL RBC Morphology Polychromasia Hypochromasia Poikilocytosis Basophilic Stippling Anisocytosis Microcytosis Macrocytosis Spherocytes Tear Drop Cells Ovalocytes Stomatocytes [place] Bodies [place] Cells/Echinocytes Acanthocytes (Spur) Schistocytes PT (9.1-11.1) sec INR (0.9-1.1) Sodium (136-145) mmol/L Potassium (3.5-5.1) mmol/L Chloride (98-107) mmol/L Carbon Dioxide (21.0-32.0) mmol/L Anion Gap (3-11) mmol/L BUN (7-18) mg/dL Creatinine (0.70-1.30) mg/dL Est GFR (CKD-EPI 2020) (mL/min/1.73m2) Glucose (74-106) mg/dL Calcium (8.5-10.1) mg/dL Magnesium (1.8-2.4) mg/dL Total Bilirubin (0.2-1.0) mg/dL Conjugated Bilirubin (0.0-0.2) mg/dL AST (15-37) U/L ALT (16-63) U/L Alkaline Phosphatase (46-116) U/L Troponin I (<or=76) ng/L Total Protein (6.4-8.2) g/dL Albumin (3.4-5.0) g/dL TSH (0.36-3.74) uIU/mL Urine Color (Yellow) Urine Clarity (Clear) Urine pH (5-8) Ur Specific [place] (1.005-1.025) Urine Protein (Neg-Trace) mg/dL Urine Ketones (Negative) mg/dL Urine Blood (Negative) Urine Nitrite (Negative) Urine Bilirubin (Negative) Urine Urobilinogen (Up to 0.2) mg/dL Ur Leukocyte Esterase (Negative) Urine RBC (0-2) HPF Urine WBC (0-5) HPF Ur Epithelial Cells (Negative) HPF Urine Crystals (Negative) HPF Urine Bacteria (Negative) HPF Urine Casts (Negative) LPF Urine Mucus (Negative) Ur Culture Indicated? Urine Glucose (Negative) mg/dL Add-On Test Request 08/23/24 08/23/24 08/22/24 Range/Units 05:50 05:50 23:10 WBC 0.54 L* (4.4-10.8) 10^3/uL RBC 3.95 L (4.36-5.78) 10^6/uL Hgb 11.8 L (13.5-17.5) g/dL Hct 35.3 L (40.0-50.0) % MCV 89 (80-95) fL MCH 29.9 (27.0-33.0) pg MCHC 33.4 (32.0-36.0) % RDW 13.6 (11.8-14.1) % Plt Count 55 L (130-400) 10^3/uL MPV 10.4 (8.0-11.0) fL Immature Gran % Cancelled 0.0 % Neutrophils % 40.0 % Band Neutrophils % % Lymphocytes % % Atypical Lymphs % Monocytes % % Eosinophils % % Basophils % % Metamyelocytes % Myelocytes % Promyelocytes % Other Cells % Absolute Neutrophils (1.2-6.7) 10^3/uL Absolute Lymphocytes (1.2-3.4) 10^3/uL Absolute Monocytes (0.1-0.8) 10^3/uL Absolute Eosinophils (0.0-0.7) 10^3/uL Absolute Basophils (0.0-0.2) 10^3/uL RBC Morphology Polychromasia Hypochromasia Poikilocytosis Basophilic Stippling Anisocytosis Microcytosis Macrocytosis Spherocytes Tear Drop Cells Ovalocytes Stomatocytes [place] Bodies [place] Cells/Echinocytes Acanthocytes (Spur) Schistocytes PT (9.1-11.1) sec INR (0.9-1.1) Sodium 130 L (136-145) mmol/L Potassium 3.7 (3.5-5.1) mmol/L Chloride 99 (98-107) mmol/L Carbon Dioxide 20.5 L (21.0-32.0) mmol/L Anion Gap 10.5 (3-11) mmol/L BUN 22 H (7-18) mg/dL Creatinine 1.6 H (0.70-1.30) mg/dL Est GFR (CKD-EPI 2020) 45.50 (mL/min/1.73m2) Glucose 269 H (74-106) mg/dL Calcium 8.2 L (8.5-10.1) mg/dL Magnesium 1.6 L (1.8-2.4) mg/dL Total Bilirubin (0.2-1.0) mg/dL Conjugated Bilirubin (0.0-0.2) mg/dL AST (15-37) U/L ALT (16-63) U/L Alkaline Phosphatase (46-116) U/L Troponin I (<or=76) ng/L Total Protein (6.4-8.2) g/dL Albumin (3.4-5.0) g/dL TSH 3.46 (0.36-3.74) uIU/mL Urine Color (Yellow) Urine Clarity (Clear) Urine pH (5-8) Ur Specific [place] (1.005-1.025) Urine Protein (Neg-Trace) mg/dL Urine Ketones (Negative) mg/dL Urine Blood (Negative) Urine Nitrite (Negative) Urine Bilirubin (Negative) Urine Urobilinogen (Up to 0.2) mg/dL Ur Leukocyte Esterase (Negative) Urine RBC (0-2) HPF Urine WBC (0-5) HPF Ur Epithelial Cells (Negative) HPF Urine Crystals (Negative) HPF Urine Bacteria (Negative) HPF Urine Casts (Negative) LPF Urine Mucus (Negative) Ur Culture Indicated? Urine Glucose (Negative) mg/dL Add-On Test Request 08/22/24 08/22/24 Range/Units 20:00 19:41 WBC (4.4-10.8) 10^3/uL RBC (4.36-5.78) 10^6/uL Hgb (13.5-17.5) g/dL Hct (40.0-50.0) % MCV (80-95) fL MCH (27.0-33.0) pg MCHC (32.0-36.0) % RDW (11.8-14.1) % Plt Count (130-400) 10^3/uL MPV (8.0-11.0) fL Immature Gran % % Neutrophils % % Band Neutrophils % % Lymphocytes % % Atypical Lymphs % Monocytes % % Eosinophils % % Basophils % % Metamyelocytes % Myelocytes % Promyelocytes % Other Cells % Absolute Neutrophils (1.2-6.7) 10^3/uL Absolute Lymphocytes (1.2-3.4) 10^3/uL Absolute Monocytes (0.1-0.8) 10^3/uL Absolute Eosinophils (0.0-0.7) 10^3/uL Absolute Basophils (0.0-0.2) 10^3/uL RBC Morphology Polychromasia Hypochromasia Poikilocytosis Basophilic Stippling Anisocytosis Microcytosis Macrocytosis Spherocytes Tear Drop Cells Ovalocytes Stomatocytes [place] Bodies [place] Cells/Echinocytes Acanthocytes (Spur) Schistocytes PT (9.1-11.1) sec INR (0.9-1.1) Sodium (136-145) mmol/L Potassium (3.5-5.1) mmol/L Chloride (98-107) mmol/L Carbon Dioxide (21.0-32.0) mmol/L Anion Gap (3-11) mmol/L BUN (7-18) mg/dL Creatinine (0.70-1.30) mg/dL Est GFR (CKD-EPI 2020) (mL/min/1.73m2) Glucose (74-106) mg/dL Calcium (8.5-10.1) mg/dL Magnesium (1.8-2.4) mg/dL Total Bilirubin (0.2-1.0) mg/dL Conjugated Bilirubin (0.0-0.2) mg/dL AST (15-37) U/L ALT (16-63) U/L Alkaline Phosphatase (46-116) U/L Troponin I 32 (<or=76) ng/L Total Protein (6.4-8.2) g/dL Albumin (3.4-5.0) g/dL TSH (0.36-3.74) uIU/mL Urine Color Yellow (Yellow) Urine Clarity Clear (Clear) Urine pH 5.0 (5-8) Ur Specific [place] 1.015 (1.005-1.025) Urine Protein 100 H (Neg-Trace) mg/dL Urine Ketones 40 H (Negative) mg/dL Urine Blood Small H (Negative) Urine Nitrite Negative (Negative) Urine Bilirubin Negative (Negative) Urine Urobilinogen 0.2 (Up to 0.2) mg/dL Ur Leukocyte Esterase Negative (Negative) Urine RBC 0-2 (0-2) HPF Urine WBC 0-2 (0-5) HPF Ur Epithelial Cells Rare (Negative) HPF Urine Crystals Negative (Negative) HPF Urine Bacteria Rare (Negative) HPF Urine Casts 0-2 Hyaline (Negative) LPF Urine Mucus Trace (Negative) Ur Culture Indicated? No Urine Glucose >=1000 H (Negative) mg/dL Add-On Test Request 08/22/24 15:50 Blood Culture - Preliminary Blood Gram negative francisco javier 08/22/24 06:05 Blood Culture - Preliminary Blood Gram negative francisco javier [id number] Documentation Fingerstick Glucose Start: 08/22/24 22:46 Freq: .Q2H Status: Complete Protocol: Activity Type Activity Date Activity User E-sign Co-sign Detail Recorded Client Recorded Date Recorded By Document 08/23/24 06:02 BKG DAEMON(9) [id number] 08/23/24 06:03 BKG DAEMON(10) Fingerstick Glucose Start: 08/23/24 08:49 Freq: .ACHS Status: Active Protocol: Activity Type Activity Date Activity User E-sign Co-sign Detail Recorded Client Recorded Date Recorded By Document 08/23/24 17:10 BKG DAEMON(10) [id number] 08/23/24 17:15 BKG DAEMON(10) Intake and Output - 24 Hour Total 08/22/24 15:21 thru 08/23/24 17:54 Intake Total 4450 Output Total 2350 Balance 2100 Weight 102.8 kg Intake: IV 3970 Oral 480 Output: Urine 1750 Stool 600 Other: Urine Color Henry Urine Appearance Cloudy Comment 600mL mixed with stool, orange coloring in mix Stool Size Large Stool Characteristics Liquid # Voids 1 Falls Risk Assessment History of Falls No History 08/22/24 22:55 Contributing Factors Incontinence 08/22/24 22:55 Ambulatory Aids Independent 08/22/24 22:55 Tubes/Lines W/no contributing factors 08/22/24 22:55 Gait Evaluation No gait disturbance 08/22/24 22:55 Cognition No cognitive impairment 08/22/24 22:55 Fall Total Score 13 08/22/24 22:55 Level of Risk Standard/Low Risk 08/22/24 22:55 Problems (Last Reviewed 08/22/24 @ 23:35 by Shaggy Castro) DKA (diabetic ketoacidosis) (Acute) Hypothyroidism (acquired) (Chronic) Diffuse large B-cell lymphoma (Acute) Diverticulitis large intestine w/o perforation or abscess w/o bleeding (Acute) CKD (chronic kidney disease) stage 3, GFR 30-59 ml/min (Chronic) Diabetes type 2, controlled (Chronic) Neutropenic fever (Acute) Notes 08/23/24 10:32 Nursing Notes by Joann Pappas Accessed chart to reconcile orders for EKG with EKG?s in [facility]. Duplicate order cancelled. Nursing Note: Initialized on 08/23/24 10:32 - END OF NOTE 08/22/24 16:55 Nursing Notes by Doug Allen Nursing Note: Critical values received from lab: WBC = 0.26 & Absolute Neutrophils = 0.10 Results delivered to [facility] Flower and Dr. Don, ED provider Initialized on 08/22/24 16:55 - END OF NOTE v v v v v v v v v Sending and/or Receiving Nurses: Please use comment section below to note any information pertinent to the patient hand-off not included above. Information / Comments: Report received from: Report received from [facility]. Full SBAR report given, all questions answered.
[2024-08-23] MEDS: Ondansetron 4 MG/2 ML VIAL IVP (23:52)
[2024-08-24] VITALS: BP 116/64; PULSE 106; RESP 15; TEMP 36.5; O2SAT 95
[2024-08-24] MEDS: Levothyroxine 75 MCG TAB PO (04:49)
[2024-08-24] MEDS: Ondansetron 4 MG/2 ML VIAL IVP (04:49)
[2024-08-24] MEDS: Acetaminophen 325 MG TAB PO (04:49)
[2024-08-24] MEDS: Normal Saline 1,000 ML 150 ML IV (04:53)
[2024-08-24 06:36] LABS: Absolute Basophil Count 0.03 10^3/uL (0.0-0.2); Absolute Eosinophil Count 0.03 10^3/uL (0.0-0.7); Absolute Lymphocyte Count 0.19 10^3/uL (1.2-3.4); Absolute Monocyte Count 0.12 10^3/uL (0.1-0.8); Absolute Neutrophil Count 0.57 10^3/uL (1.2-6.7); Basophils % 3.2 %; Eosinophils % 3.2 %; HCT 34.2 % (40.0-50.0); HGB 11.8 g/dL (13.5-17.5); Lymphocytes % 20.2 %; MCH 29.9 pg (27.0-33.0); MCHC 34.5 % (32.0-36.0); MCV 87 fL (80-95); MPV 10.2 fL (8.0-11.0); Monocytes % 12.8 %; Neutrophils % 60.6 %; RBC 3.94 10^6/uL (4.36-5.78); RDW 13.4 % (11.8-14.1); RDW-SD 43.4 fL
[2024-08-24 07:14] LABS: Diff Comment Agrees w/ Instrument; Platelet Count 77 10^3/uL (130-400); RBC Morphology Normal
[2024-08-24 07:16] LABS: WBC 0.94 10^3/uL (4.4-10.8)
[2024-08-24] MEDS: Insulin Aspart 300 UNITS/3 ML PEN SC ×2 (08:15→11:54)
[2024-08-24] MEDS: Atorvastatin 10 MG TAB PO (08:16)
[2024-08-24] MEDS: Cholecalciferol (Vitamin D3) 1,000 UNIT TAB 1000 UNITS PO (08:16)
[2024-08-24] MEDS: Vitamins B Comp w/C TAB 1 TAB PO (08:16)
[2024-08-24] MEDS: CEFEPIME 2 GM in Normal Saline 100 ML IVPB (08:17)
[2024-08-24] MEDS: Normal Saline Flush 10 ML SYR IVP (08:17)
[2024-08-24 08:25] VITALS: BP 119/64; PULSE 106; RESP 18; TEMP 36.3; O2SAT 96
[2024-08-24 11:50] VITALS: BP 118/77; PULSE 101; RESP 18; TEMP 36.5; O2SAT 97
--- NOTE | 2024-08-24 11:59 | DSE_ITS ---
Date of service: 08/24/24 Time of Service: 12:00 DS: Diagnosis Discharge Diagnosis (1) Neutropenic fever: Status: Acute (2) Diverticulitis large intestine w/o perforation or abscess w/o bleeding: Status: Acute (3) Diffuse large B-cell lymphoma: Status: Acute (4) Diabetes type 2, controlled: Status: Chronic (5) CKD (chronic kidney disease) stage 3, GFR 30-59 ml/min: Status: Chronic (6) Hypertension: (7) Hypothyroidism (acquired): Status: Chronic Discharge Plan Disposition Patient Disposition: Home Condition: Good Discharge Details Reason For Visit: Diverticulitis, Neutropenic fever, Large B-cell ly Admit Date/Time: 08/22/24 21:32 Admit Provider: Shaggy Castro Attending Provider: Shaggy Castro Primary Care Provider: Aly Varela Hospital Course Hospital Course: Patient initially presented with signs and symptoms that were ultimately determined to be secondary to neutropenic fever with likely source diverticulitis. Patient was treated with initially vancomycin and cefepime and once initial blood cultures grew gram-negative rods vancomycin was discontinued. Patient had significant improvement with cefepime and ultimately well cultures grew Pseudomonas. Given overall improvement in patient's symptoms, he will be discharged with p.o. ciprofloxacin and Flagyl for an additional 7 days. Home Meds and New Rx's Prescriptions: New ciprofloxacin HCl 750 mg tablet 750 mg PO BID Qty: 14 0RF metronidazole 500 mg tablet 500 mg PO BID 7 Days Qty: 14 0RF Continued levothyroxine 75 mcg capsule 75 mcg PO DAILY losartan 25 mg tablet 25 mg PO DAILY metformin 500 mg tablet 500 mg PO DAILY Ultra CoQ10 75 mg capsule 75 mg PO DAILY vitamins B1 B6 B12 Liquid 5 ml PO DAILY amlodipine 2.5 MG tablet 2.5 mg PO DAILY cholecalciferol (vitamin D3) 1,000 UNITS tablet 1,000 units PO DAILY acyclovir 400 mg tablet 400 mg PO BID prochlorperazine maleate 10 mg tablet 10 mg PO PRN PRN atorvastatin 10 mg tablet 10 mg PO DAILY Patient Comments: TAKE ONE TABLET BY MOUTH EVERY NIGHT (DME) blood-glucose meter [OneTouch Verio Flex meter] Misc MISCELLANEOUS Patient Comments: TEST ONCE DAILY polyethylene glycol 3350 17 gram powder in packet 17 g PO DAILY PRN Patient Comments: MIX 17 GRAMS (1 PACKET) IN LIQUID AND DRINK BY MOUTH DAILY NEEDED (CONSTIPATION) (DME) OneTouch Verio test strips Strip MISCELLANEOUS Patient Comments: TEST BLOOD SUGAR ONCE DAILY (DME) lancets [OneTouch Delica Plus Lancet] 33 gauge misc MISCELLANEOUS Patient Comments: TEST BLOOD SUGAR ONCE DAILY Discharge Instructions Activity:: Activity as Tolerated Equipment/Supplies:: No Equipment Needed Diet:: As Tolerated Discharge Orders Discharge Orders: Discharge Order (Routine); Ordered 08/24/24 Ordered By: Johnathan Molina DS: Summary Time Spent with Patient providing and/or coordinating discharge services: Greater than 30 minutes Status at Discharge Functional status at discharge: independent ambulation Overall status at discharge: patient is back to baseline Mental Status: mental status grossly normal Speech and Movement: speech and movement normal Mood: congruent mood Affect: normal affect Quality:SDOH Health Related Social Needs: Health related social needs details none Health related social needs details: none Exam Narrative Exam Narrative: well appearing older gentleman laying in bed in no acute distress, AOx4, heart RRR, lungs CTAB, abdomen soft with mild diffuse tenderness to palpation but without rebound or guarding Psych Mental Status: mental status grossly normal Speech and Movement: speech and movement normal Mood: congruent mood Affect: normal affect DS: Data Vitals/I&O Vitals and I&O: Vital Signs Temperature 97.7 F 08/24/24 11:50 Temperature Source Temporal Artery Scan 08/24/24 11:50 Pulse 101 H 08/24/24 11:50 Pulse 107 H 08/23/24 17:01 Respiratory Rate 18 08/24/24 11:50 Respiratory Effort Normal, Non-Labored 08/22/24 22:55 Respiratory Depth Normal 08/22/24 22:55 Respiratory Pattern Normal 08/22/24 22:55 Blood Pressure 118/77 08/24/24 11:50 Blood Pressure Mean 90 08/24/24 11:50 Blood Pressure Position Supine 08/22/24 22:55 Pulse Oximetry 97 08/24/24 11:50 Oxygen Delivery Method Room Air 08/24/24 11:50 Oxygen Flow Rate 0 08/24/24 11:50 Pain Level 0 08/24/24 11:50 Intake & Output 08/23/24 08/24/24 08/24/24 17:59 05:59 17:59 Intake Total 3100 / 3100 2220 / 5320 1167.5 / 1167.5 Output Total 1600 / 1600 875 / 2475 800 / 800 Balance 1500 / 1500 1345 / 2845 367.5 / 367.5 Weight 226 lb 10.163 oz Intake: IV 2350 / 2350 2220 / 4570 917.5 / 917.5 Oral 750 / 750 250 / 250 Output: Urine 1000 / 1000 875 / 1875 800 / 800 Stool 600 / 600 Other: Urine Color Carver Straw Yellow Urine Appearance Cloudy Cloudy Clear Urine Odor Strong Comment 600mL mixed with stool, orange coloring in mix Stool Size Moderate Moderate Stool Characteristics Liquid Soft Soft Brown Data Completed and Pending Labs on day of discharge: Labs from last 24 hours 08/24/24 06:08 WBC 0.94 L* RBC 3.94 L Hgb 11.8 L Hct 34.2 L MCV 87 MCH 29.9 MCHC 34.5 RDW 13.4 Plt Count 77 L MPV 10.2 Immature Gran % 0.0 Neutrophils % 60.6 Lymphocytes % 20.2 Monocytes % 12.8 Eosinophils % 3.2 Basophils % 3.2 Nucleated RBC % 0.0 Absolute Neutrophils 0.57 L Absolute Lymphocytes 0.19 L Absolute Monocytes 0.12 Absolute Eosinophils 0.03 Absolute Basophils 0.03 RBC Morphology Normal Preliminary micro results at discharge 08/22/24 15:50 Blood Blood Culture - Preliminary Pseudomonas aeruginosa 08/22/24 06:05 Blood Blood Culture - Preliminary Pseudomonas aeruginosa PFSH All Active Problems (Updated 08/23/24 @ 03:02 by Shaggy Castro) DKA (diabetic ketoacidosis) (Acute) Hypothyroidism (acquired) (Chronic) Diffuse large B-cell lymphoma (Acute) Diverticulitis large intestine w/o perforation or abscess w/o bleeding (Acute) CKD (chronic kidney disease) stage 3, GFR 30-59 ml/min (Chronic) Diabetes type 2, controlled (Chronic) Neutropenic fever (Acute) Enlarged lymph nodes (Acute) Medical History Hypertension Nephrolithiasis Diverticulosis Surgical History Colonoscopy - MAC (02/13/17) Social History Smoking/Tobacco Use Status: Former Tobacco Use Smoking risk assessment performed?: Yes Alcohol Intake: former Drug use: Never Substance use type: does not use Housing: house Time Spent with Patient Time Spent with Patient: <45 minutes Time was spent: preparing to see the patient(eg.review tests), obtaining and/or reviewing separately otained hiistory, ordering medications,tests, procedures, referring, communicating with other health skin care specialist, indepentently interpreting results, counseling the patient and care coordination
--- NOTE | 2024-08-24 17:32 | PDOC.CMDIS ---
Date of service: 08/24/24 Time of Service: 17:32 LACE Index Scoring Tool Questions: Length of Stay (in days): 2 Was the patient admitted via the E.D.?: Yes Comorbidities: Diabetes w/o Complication, Any Tumor and Liver or Renal Disease E.D. Visits: 0 Answers: Total Score: 10 Risk of Readmission: High Risk Care Management Discharge Plan Reason for Hospitalization: diverticulitis, neutropenic fever Discharge Plan: Shaggy returned home today with no new services. His drove him home via private vehicle. He will follow up with his PCP and discharge plan of care. Patient/Family Education Needs: Review discharge instructions and limitations, discussion of self care needs including ask me three. SDOH Health Related Social Needs: Health related social needs details none Health related social needs details: none
== END 2024-08-24 12:31 | disposition home or self-care (01) | DRG 391 ==
LOC: ER 21:46 → ICU 22:31 → MS 08-23 17:24
PROVIDERS: Emergency Medicine; Admitting Provider Family Medicine; Emergency Provider Emergency Medicine; PCP Physician Assistant; Responsible Provider Family Medicine; Visit Provider Family Medicine
DX: K57.32 Diverticulitis of large intestine without perforation or abscess without bleeding (principal); E11.10 Type 2 diabetes mellitus with ketoacidosis without coma; C83.38 Diffuse large B-cell lymphoma, lymph nodes of multiple sites; R50.81 Fever presenting with conditions classified elsewhere; E11.22 Type 2 diabetes mellitus with diabetic chronic kidney disease; N18.31 Chronic kidney disease, stage 3a; I12.9 Hypertensive chronic kidney disease with stage 1 through stage 4 chronic kidney disease, or unspecified chronic kidney disease; E03.9 Hypothyroidism, unspecified; Z79.899 Other long term (current) drug therapy; Z87.891 Personal history of nicotine dependence; B96.5 Pseudomonas (aeruginosa) (mallei) (pseudomallei) as the cause of diseases classified elsewhere; D69.6 Thrombocytopenia, unspecified; Z95.828 Presence of other vascular implants and grafts; Z79.84 Long term (current) use of oral hypoglycemic drugs; D70.3 Neutropenia due to infection
CPT/HCPCS: 00123; 36415; 74177; 80048; 80053; 80076; 82805; 85027; 87040; 87077; 87637; 93005; 93308; 96365; 96366; 99285; 71045; 71260; 81003; 81015; 83605; 83735; 84443; 84484; 85007; 85025; 85610; 87186; 93010; 99223; 99233; 99239; J0692; J1815; J2405; J3370; J3372; J3490

== ENCOUNTER 2024-08-28 02:59 | Outpatient (RCR) | payer BC, SELFPAY ==
[2024-08-20 07:48] LABS: HGB 13.4 g/dL (13.5-17.5); MCHC 33.5 % (32.0-36.0); MCV 90 fL (80-95); MPV 9.7 fL (8.0-11.0); Platelet Count 125 10^3/uL (130-400); RBC 4.47 10^6/uL (4.36-5.78); RDW 13.7 % (11.8-14.1); RDW-SD 44.9 fL; WBC 3.68 10^3/uL (4.4-10.8)
[2024-08-20] MEDS: Normal Saline Flush 10 ML SYR IVP (07:49)
[2024-08-20 08:07] LABS: Absolute Monocyte Count 0.04 10^3/uL (0.1-0.8); Bands % 2 %; Diff Comment Manual Differential; RBC Morphology Normal
[2024-08-20 08:08] LABS: ALT 62 U/L (16-63); AST 35 U/L (15-37); Albumin 3.6 g/dL (3.4-5.0); Alkaline Phosphatase 126 U/L (46-116); Anion Gap 8.9 mmol/L (3-11); BUN 35 mg/dL (7-18); Bilirubin, Total 1.2 mg/dL (0.2-1.0); CO2 27.1 mmol/L (21.0-32.0); CREATININE 1.3 mg/dL (0.70-1.30); Calcium 9.5 mg/dL (8.5-10.1); Chloride 102 mmol/L (98-107); Estimated GFR 58.37 (mL/min/1.73m2); Glucose 202 mg/dL (74-106); LDH 164 U/L (85-227); Potassium 3.6 mmol/L (3.5-5.1); Sodium 138 mmol/L (136-145); Total Protein 7.4 g/dL (6.4-8.2)
[2024-08-20 08:10] LABS: Atypical Lymphocytes % 7 %
[2024-08-20 08:15] LABS: Absolute Lymphocyte Count 1.14 10^3/uL (1.2-3.4)
[2024-08-28 10:29] LABS: HCT 37.5 % (40.0-50.0); HGB 12.9 g/dL (13.5-17.5); MCH 29.4 pg (27.0-33.0); MCHC 34.4 % (32.0-36.0); MCV 85 fL (80-95); MPV 9.9 fL (8.0-11.0); RBC 4.39 10^6/uL (4.36-5.78); RDW 15.4 % (11.8-14.1); RDW-SD 46.8 fL; WBC 8.31 10^3/uL (4.4-10.8)
[2024-08-28] MEDS: Normal Saline Flush 10 ML SYR IVP (10:34)
[2024-08-28 10:43] LABS: ALT 24 U/L (16-63); AST 14 U/L (15-37); Albumin 2.3 g/dL (3.4-5.0); Alkaline Phosphatase 72 U/L (46-116); Anion Gap 11.6 mmol/L (3-11); BUN 23 mg/dL (7-18); Bilirubin, Total 0.4 mg/dL (0.2-1.0); CO2 23.4 mmol/L (21.0-32.0); CREATININE 1.9 mg/dL (0.70-1.30); Chloride 105 mmol/L (98-107); Estimated GFR 37.02 (mL/min/1.73m2); Glucose 289 mg/dL (74-106); LDH 224 U/L (85-227); Sodium 140 mmol/L (136-145); Total Protein 6.1 g/dL (6.4-8.2)
[2024-08-28 10:48] LABS: Potassium 2.5 mmol/L (3.5-5.1)
[2024-08-28 11:00] LABS: Absolute Lymphocyte Count 0.91 10^3/uL (1.2-3.4); Absolute Neutrophil Count 5.07 10^3/uL (1.2-6.7); Bands % 5 %; Platelet Count 487 10^3/uL (130-400)
[2024-08-28 11:01] LABS: Absolute Basophil Count 0.25 10^3/uL (0.0-0.2); Absolute Eosinophil Count 0.08 10^3/uL (0.0-0.7); Absolute Monocyte Count 1.75 10^3/uL (0.1-0.8); Diff Comment Manual Differential; Metamyelocytes % 3; RBC Morphology Normal
== END 2024-08-30 23:59 | disposition home or self-care (01) ==
LOC: INF 02:59
PROVIDERS: PCP Physician Assistant; Visit Provider Internal Medicine Hematology & Oncology
DX: C83.31 Diffuse large B-cell lymphoma, lymph nodes of head, face, and neck (principal); Z45.2 Encounter for adjustment and management of vascular access device
CPT/HCPCS: 36591; 80053; 83615; 85025

== ENCOUNTER 2024-09-17 02:47 | Outpatient (RCR) | payer BC, SELFPAY ==
[2024-09-03] MEDS: Normal Saline Flush 10 ML SYR IVP (07:11)
[2024-09-03 07:33] LABS: Abs Immature Grans 0.51 10^3/uL (0.0-0.06); HCT 36.3 % (40.0-50.0); HGB 12.1 g/dL (13.5-17.5); MCH 29.3 pg (27.0-33.0); MCHC 33.3 % (32.0-36.0); MCV 88 fL (80-95); MPV 9.4 fL (8.0-11.0); Platelet Count 449 10^3/uL (130-400); RBC 4.13 10^6/uL (4.36-5.78); RDW 17.5 % (11.8-14.1); RDW-SD 53.1 fL; WBC 12.86 10^3/uL (4.4-10.8)
[2024-09-03 07:58] LABS: ALT 20 U/L (16-63); AST 15 U/L (15-37); Albumin 2.4 g/dL (3.4-5.0); Alkaline Phosphatase 108 U/L (46-116); BUN 14 mg/dL (7-18); Bilirubin, Total 0.4 mg/dL (0.2-1.0); CREATININE 1.6 mg/dL (0.70-1.30); Chloride 106 mmol/L (98-107); Glucose 220 mg/dL (74-106); LDH 185 U/L (85-227); Sodium 142 mmol/L (136-145); Total Protein 6.2 g/dL (6.4-8.2)
[2024-09-03 08:13] LABS: Potassium 2.7 mmol/L (3.5-5.1)
[2024-09-03 08:23] LABS: Absolute Lymphocyte Count 1.54 10^3/uL (1.2-3.4); Absolute Monocyte Count 0.77 10^3/uL (0.1-0.8); Absolute Neutrophil Count 10.16 10^3/uL (1.2-6.7); Bands % 4 %; Metamyelocytes % 2
[2024-09-03 08:24] LABS: Diff Comment Manual Differential; RBC Morphology Normal
[2024-09-10] MEDS: Normal Saline Flush 10 ML SYR IVP (07:35)
[2024-09-10 07:56] LABS: Abs Immature Grans 0.19 10^3/uL (0.0-0.06); Absolute Basophil Count 0.12 10^3/uL (0.0-0.2); Absolute Eosinophil Count 0.04 10^3/uL (0.0-0.7); Absolute Lymphocyte Count 1.15 10^3/uL (1.2-3.4); Absolute Monocyte Count 0.75 10^3/uL (0.1-0.8); Absolute Neutrophil Count 5.57 10^3/uL (1.2-6.7); Basophils % 1.5 %; Eosinophils % 0.5 %; HGB 11.7 g/dL (13.5-17.5); Immature Grans % 2.4 %; Lymphocytes % 14.7 %; MCH 29.9 pg (27.0-33.0); MCHC 32.5 % (32.0-36.0); MCV 92 fL (80-95); MPV 9.2 fL (8.0-11.0); Monocytes % 9.6 %; Neutrophils % 71.3 %; Platelet Count 328 10^3/uL (130-400); RBC 3.91 10^6/uL (4.36-5.78); RDW 17.3 % (11.8-14.1); RDW-SD 55.5 fL; WBC 7.82 10^3/uL (4.4-10.8)
[2024-09-10 08:12] LABS: ALT 32 U/L (16-63); AST 23 U/L (15-37); Albumin 2.8 g/dL (3.4-5.0); Alkaline Phosphatase 125 U/L (46-116); Anion Gap 8.4 mmol/L (3-11); BUN 21 mg/dL (7-18); Bilirubin, Total 0.4 mg/dL (0.2-1.0); CO2 27.6 mmol/L (21.0-32.0); CREATININE 1.6 mg/dL (0.70-1.30); Calcium 8.8 mg/dL (8.5-10.1); Chloride 105 mmol/L (98-107); Glucose 300 mg/dL (74-106); LDH 177 U/L (85-227); Potassium 4.1 mmol/L (3.5-5.1); Sodium 141 mmol/L (136-145); Total Protein 6.7 g/dL (6.4-8.2)
[2024-09-17 13:08] LABS: HCT 37.4 % (40.0-50.0); HGB 12.3 g/dL (13.5-17.5); MCH 30.1 pg (27.0-33.0); MCHC 32.9 % (32.0-36.0); MCV 92 fL (80-95); MPV 10.1 fL (8.0-11.0); Platelet Count 153 10^3/uL (130-400); RBC 4.08 10^6/uL (4.36-5.78); RDW 15.9 % (11.8-14.1); RDW-SD 53.2 fL; WBC 3.64 10^3/uL (4.4-10.8)
[2024-09-17 13:29] LABS: ALT 32 U/L (16-63); AST 14 U/L (15-37); Albumin 3.3 g/dL (3.4-5.0); Alkaline Phosphatase 174 U/L (46-116); Anion Gap 8.2 mmol/L (3-11); BUN 24 mg/dL (7-18); Bilirubin, Total 0.5 mg/dL (0.2-1.0); CO2 29.8 mmol/L (21.0-32.0); CREATININE 1.4 mg/dL (0.70-1.30); Chloride 102 mmol/L (98-107); Glucose 183 mg/dL (74-106); LDH 145 U/L (85-227); Sodium 140 mmol/L (136-145); Total Protein 6.9 g/dL (6.4-8.2)
[2024-09-17] MEDS: Normal Saline Flush 10 ML SYR IVP (13:31)
[2024-09-17 14:17] LABS: Absolute Basophil Count 0.04 10^3/uL (0.0-0.2); Absolute Eosinophil Count 0.47 10^3/uL (0.0-0.7); Absolute Lymphocyte Count 0.87 10^3/uL (1.2-3.4); Absolute Monocyte Count 0.07 10^3/uL (0.1-0.8); Absolute Neutrophil Count 2.18 10^3/uL (1.2-6.7); Bands % 5 %; Diff Comment Manual Differential; RBC Morphology Normal
== END 2024-09-29 23:59 | disposition home or self-care (01) ==
LOC: INF 02:47
PROVIDERS: PCP Physician Assistant; Visit Provider Internal Medicine Hematology & Oncology
DX: C83.31 Diffuse large B-cell lymphoma, lymph nodes of head, face, and neck (principal); Z45.2 Encounter for adjustment and management of vascular access device
CPT/HCPCS: 36591; 80053; 83615; 85025

== ENCOUNTER 2024-10-22 02:10 | Outpatient (RCR) | payer BC, SELFPAY ==
[2024-10-01] MEDS: Normal Saline Flush 10 ML SYR IVP (07:17)
[2024-10-01 08:06] LABS: Abs Immature Grans 0.15 10^3/uL (0.0-0.06); HCT 33.8 % (40.0-50.0); HGB 11.2 g/dL (13.5-17.5); Immature Grans % 2.0 %; MCH 30.7 pg (27.0-33.0); MCHC 33.1 % (32.0-36.0); MCV 93 fL (80-95); MPV 9.6 fL (8.0-11.0); Platelet Count 190 10^3/uL (130-400); RBC 3.65 10^6/uL (4.36-5.78); RDW 17.6 % (11.8-14.1); RDW-SD 58.4 fL; WBC 7.45 10^3/uL (4.4-10.8)
[2024-10-01 08:31] LABS: ALT 26 U/L (16-63); AST 20 U/L (15-37); Albumin 3.5 g/dL (3.4-5.0); Alkaline Phosphatase 136 U/L (46-116); Anion Gap 8.1 mmol/L (3-11); BUN 14 mg/dL (7-18); Bilirubin, Total 0.5 mg/dL (0.2-1.0); CO2 27.9 mmol/L (21.0-32.0); Calcium 8.9 mg/dL (8.5-10.1); Chloride 105 mmol/L (98-107); Estimated GFR 64.25 (mL/min/1.73m2); Glucose 158 mg/dL (74-106); LDH 191 U/L (85-227); Potassium 3.8 mmol/L (3.5-5.1); Sodium 141 mmol/L (136-145); Total Protein 6.9 g/dL (6.4-8.2)
[2024-10-22 07:21] LABS: Abs Immature Grans 0.22 10^3/uL (0.0-0.06); HCT 34.2 % (40.0-50.0); HGB 11.1 g/dL (13.5-17.5); Immature Grans % 2.8 %; MCH 30.9 pg (27.0-33.0); MCHC 32.5 % (32.0-36.0); MCV 95 fL (80-95); MPV 9.4 fL (8.0-11.0); Platelet Count 208 10^3/uL (130-400); RBC 3.59 10^6/uL (4.36-5.78); RDW 18.6 % (11.8-14.1); RDW-SD 64.9 fL; WBC 7.78 10^3/uL (4.4-10.8)
[2024-10-22] MEDS: Normal Saline Flush 10 ML SYR IVP (07:37)
[2024-10-22 07:39] LABS: ALT 24 U/L (16-63); AST 17 U/L (15-37); Albumin 3.6 g/dL (3.4-5.0); Alkaline Phosphatase 143 U/L (46-116); Anion Gap 10.3 mmol/L (3-11); BUN 17 mg/dL (7-18); Bilirubin, Total 0.4 mg/dL (0.2-1.0); CO2 26.7 mmol/L (21.0-32.0); Calcium 9.0 mg/dL (8.5-10.1); Chloride 106 mmol/L (98-107); Estimated GFR 64.25 (mL/min/1.73m2); Glucose 154 mg/dL (74-106); LDH 183 U/L (85-227); Potassium 3.9 mmol/L (3.5-5.1); Sodium 143 mmol/L (136-145); Total Protein 6.8 g/dL (6.4-8.2)
== END 2024-10-30 23:59 | disposition home or self-care (01) ==
LOC: INF 02:10
PROVIDERS: PCP Physician Assistant; Visit Provider Internal Medicine Hematology & Oncology
DX: C83.31 Diffuse large B-cell lymphoma, lymph nodes of head, face, and neck (principal)
CPT/HCPCS: 36591; 80053; 83615; 85025

== ENCOUNTER 2024-11-12 03:33 | Outpatient (RCR) | payer BC, SELFPAY ==
[2024-11-12] MEDS: Normal Saline Flush 10 ML SYR IVP (07:35)
[2024-11-12 07:45] LABS: Abs Immature Grans 0.09 10^3/uL (0.0-0.06); HCT 32.1 % (40.0-50.0); HGB 10.5 g/dL (13.5-17.5); Immature Grans % 1.3 %; MCH 31.6 pg (27.0-33.0); MCHC 32.7 % (32.0-36.0); MCV 97 fL (80-95); MPV 9.2 fL (8.0-11.0); Platelet Count 210 10^3/uL (130-400); RBC 3.32 10^6/uL (4.36-5.78); RDW 17.4 % (11.8-14.1); RDW-SD 61.2 fL; WBC 6.83 10^3/uL (4.4-10.8)
[2024-11-12 08:13] LABS: ALT 22 U/L (16-63); AST 20 U/L (15-37); Albumin 3.5 g/dL (3.4-5.0); Alkaline Phosphatase 111 U/L (46-116); Anion Gap 6.8 mmol/L (3-11); BUN 20 mg/dL (7-18); Bilirubin, Total 0.5 mg/dL (0.2-1.0); CO2 27.2 mmol/L (21.0-32.0); Calcium 8.7 mg/dL (8.5-10.1); Chloride 107 mmol/L (98-107); Estimated GFR 58.01 (mL/min/1.73m2); Glucose 174 mg/dL (74-106); LDH 186 U/L (85-227); Potassium 3.9 mmol/L (3.5-5.1); Sodium 141 mmol/L (136-145); Total Protein 6.6 g/dL (6.4-8.2)
== END 2024-11-30 23:59 | disposition home or self-care (01) ==
LOC: INF 03:33
PROVIDERS: PCP Physician Assistant; Visit Provider Internal Medicine Hematology & Oncology
DX: Z45.2 Encounter for adjustment and management of vascular access device (principal); C83.31 Diffuse large B-cell lymphoma, lymph nodes of head, face, and neck
CPT/HCPCS: 36591; 80053; 83615; 85025

== ENCOUNTER 2024-12-03 08:11 | Outpatient (RCR) | payer BC, SELFPAY ==
[2024-12-03] MEDS: Normal Saline Flush 10 ML SYR IVP (07:30)
[2024-12-03 08:37] LABS: Abs Immature Grans 0.13 10^3/uL (0.0-0.06); HCT 32.8 % (40.0-50.0); HGB 10.6 g/dL (13.5-17.5); Immature Grans % 1.6 %; MCH 31.7 pg (27.0-33.0); MCHC 32.3 % (32.0-36.0); MCV 98 fL (80-95); MPV 9.9 fL (8.0-11.0); Platelet Count 166 10^3/uL (130-400); RBC 3.34 10^6/uL (4.36-5.78); RDW 16.1 % (11.8-14.1); RDW-SD 58.2 fL; WBC 8.04 10^3/uL (4.4-10.8)
[2024-12-03 08:51] LABS: ALT 24 U/L (16-63); AST 20 U/L (15-37); Albumin 3.6 g/dL (3.4-5.0); Alkaline Phosphatase 120 U/L (46-116); Anion Gap 6.5 mmol/L (3-11); BUN 20 mg/dL (7-18); Bilirubin, Total 0.4 mg/dL (0.2-1.0); CO2 28.5 mmol/L (21.0-32.0); Calcium 9.0 mg/dL (8.5-10.1); Chloride 106 mmol/L (98-107); Glucose 184 mg/dL (74-106); LDH 173 U/L (85-227); Potassium 3.9 mmol/L (3.5-5.1); Sodium 141 mmol/L (136-145); Total Protein 6.8 g/dL (6.4-8.2)
== END 2024-12-30 23:59 | disposition home or self-care (01) ==
LOC: INF 08:11
PROVIDERS: PCP Physician Assistant; Visit Provider Internal Medicine Hematology & Oncology
DX: Z45.2 Encounter for adjustment and management of vascular access device (principal); C83.31 Diffuse large B-cell lymphoma, lymph nodes of head, face, and neck
CPT/HCPCS: 36591; 80053; 83615; 85025

== ENCOUNTER 2024-12-26 19:24 | Observation (INO) | payer BC, MEDICARE, SELFPAY ==
[2024-12-26] VITALS (39 sets, daily range): BP systolic 110–177; BP diastolic 63–147; PULSE 96–149; RESP 11–35; TEMP 36.9; O2SAT 90–98
--- NOTE | 2024-12-26 19:15 | RT.EKG_ITS ---
APPROVED REPORT Exam: Resting ECG Reason for Exam: short of breath Patient Location: E HR:146 bpm ECG Measurements Heart Rate [address] [id number] P [id number] QRSd 71 QRS -34 QT 306 T -44 QTc 478 Conclusion Atrial flutter with 2:1 AV block, rate 146 No interval abnormalities No STEMI Compared to priors, A-flutter is new
[2024-12-26 19:57] LABS: Abs Immature Grans 0.06 10^3/uL (0.0-0.06); HCT 32.5 % (40.0-50.0); HGB 10.7 g/dL (13.5-17.5); Immature Grans % 0.6 %; MCH 32.0 pg (27.0-33.0); MCHC 32.9 % (32.0-36.0); MCV 97 fL (80-95); MPV 9.2 fL (8.0-11.0); Platelet Count 139 10^3/uL (130-400); RBC 3.34 10^6/uL (4.36-5.78); RDW 15.5 % (11.8-14.1); RDW-SD 55.3 fL; WBC 10.49 10^3/uL (4.4-10.8)
[2024-12-26] MEDS: Lactated Ringers 1,000 ML 1000 ML IV (19:59)
--- NOTE | 2024-12-26 20:00 | DI.CT_ITS ---
Exam(s) CT CHEST PE CTA EXAM: CT CHEST PE CTA CLINICAL HISTORY: New a-flutter, hx lymphoma. TECHNIQUE: Imaging Protocol: Axial CT angiography was performed with multi- slice acquisition and multi-planar reconstructions as well as axial, coronal and sagittal MIP reconstructions. Computer aided detection (CAD) was utilized. CONTRAST MATERIAL: Intravenous: Omnipaque 350 Contrast volume:85 ml COMPARISON: CT CT CHEST/ABD/PEL W from 08/22/2024 FINDINGS: Pulmonary Arteries: There is a thrombus in the right upper lobe main pulmonary artery at the branch point. There is a small thrombus noted at the branch point of the right lower lobe vessels. It measures 11 millimeters in length and is partially occlusive. No left-sided emboli are seen. Mediastinum and Gabbie: No dominant adenopathy or fluid collection. Pulmonary parenchyma: Expiratory changes. No consolidation or dominant measurable mass. Pleura: No effusion or pneumothorax. Heart: The heart is not dilated. No evidence of right heart strain. Coronary artery calcifications are seen. Aorta: Thoracic aorta non-dilated. No dissection. Upper abdomen: No acute findings. Bones: Unremarkable for age. Tubes, Catheters, and Lines: Port over right pectoral muscle. Soft tissues: Unremarkable. IMPRESSION: Focal emboli in right upper and lower lobe pulmonary artery branches. No evidence of right heart strain. The preliminary [facility] report was reviewed. RADIATION DOSE DELIVERED: Total DLP DATA REPOSITORY: All CT scans at this facility are submitted to the National Radiology Data Registry (NRDR) Dose Index Registry (DIR) with the [employer] (ACR). RADIATION OPTIMIZATION: All CT scans at this facility use at least one of these dose optimization techniques: automated exposure control; mA and/or kV adjustment per patient size (includes targeted exams where dose is matched to clinical indication); or iterative reconstruction.
[2024-12-26 20:13] LABS: RBC Morphology Normal
[2024-12-26 20:14] LABS: ALT 21 U/L (16-63); AST 17 U/L (15-37); Albumin 3.6 g/dL (3.4-5.0); Alkaline Phosphatase 118 U/L (46-116); Anion Gap 9.5 mmol/L (3-11); BUN 22 mg/dL (7-18); Bilirubin, Total 0.5 mg/dL (0.2-1.0); CO2 26.5 mmol/L (21.0-32.0); Calcium 8.5 mg/dL (8.5-10.1); Chloride 105 mmol/L (98-107); Estimated GFR 48.85 (mL/min/1.73m2); Glucose 223 mg/dL (74-106); Magnesium 2.0 mg/dL (1.8-2.4); Potassium 4.0 mmol/L (3.5-5.1); Sodium 141 mmol/L (136-145); Total Protein 7.0 g/dL (6.4-8.2)
[2024-12-26 20:19] LABS: Troponin I 86 ng/L (<or=76)
--- NOTE | 2024-12-26 20:20 | W.ED.GENAD ---
Discharge Plan Disposition Patient Disposition: Admit to [facility] Condition: Stable Discharge Details Clinical Impression: Pulmonary embolism, Atrial flutter with rapid ventricular response, Diffuse large B-cell lymphoma, CKD (chronic kidney disease) stage 3, GFR 30-59 ml/min, Diabetes type 2, controlled Admit Date/Time: 12/26/24 22:11 Admit Provider: Carlos Roth Attending Provider: Carlos Roth Primary Care Provider: Aly Varela ED Provider: Angy Garcia Discharge Data Discharge Date/Time-TO BE ENTERED AT DEPARTURE: 12/26/24 22:22 HPI General Mode of arrival: ambulatory. Date/Time Provider Initiated Documentation: 12/26/24 19:34. Limitations to Documentation: no limitations. Information obtained by: patient, family and old records reviewed. HPI Narrative: This is a 74-year-old male patient with a past medical history significant for diffuse large B-cell lymphoma, just completed chemotherapy on December 03, and history of CKD, diabetes, and hypothyroidism presenting for evaluation of shortness of breath and pleuritic chest pain. The patient reports that he woke up last night around midnight and felt very short of breath, and was specifically having some generalized chest discomfort and heaviness when he tried to take a deep breath. He states that for the last week he has felt quite fatigued and generally unwell, similar to how he has felt intermittently after chemotherapy. He denies fevers or chills, has not had recent injury, does not have prior heart or lung problems to his knowledge. The patient was noted in triage to have a tachydysrhythmia, atrial flutter with a rate of 146. The patient states that he is not experiencing palpitations and does not wear a smart watch or check his heart rate at home and is not sure when this might have begun. Related Data Home Medications ?Medication ?Instructions ?Recorded ?Confirmed cholecalciferol (vitamin D3) 25 1,000 units PO DAILY 02/13/17 12/26/24 mcg (1,000 unit) tablet coenzyme Q10 75 mg capsule (Ultra 75 mg PO DAILY 04/07/24 12/26/24 CoQ10) levothyroxine 75 mcg capsule 75 mcg PO DAILY 04/07/24 12/26/24 losartan 25 mg tablet 25 mg PO DAILY 04/07/24 12/26/24 metformin 500 mg tablet 500 mg PO DAILY 04/07/24 12/26/24 vitamins B1 B6 B12 oral liquid 5 ml PO DAILY 04/07/24 12/26/24 acyclovir 400 mg tablet 400 mg PO BID 08/22/24 12/26/24 atorvastatin 10 mg tablet 10 mg PO DAILY 08/22/24 12/26/24 blood [facility] 08/22/24 12/26/24 Verio test strips) blood-glucose meter ([facility] 08/22/24 12/26/24 Verio Flex Meter) lancets 33 gauge ([facility] 08/22/24 12/26/24 Plus Lancet) polyethylene glycol 3350 17 gram 17 g PO DAILY PRN 08/22/24 12/26/24 oral powder packet prochlorperazine maleate 10 mg 10 mg PO PRN PRN 08/22/24 12/26/24 tablet empagliflozin 10 mg tablet 10 mg PO DAILY 12/26/24 12/26/24 (Jardiance) Allergies Allergy/AdvReac Type Severity Reaction Status Date / Time No Known Allergies Allergy Unverified 12/26/24 19:30 General Stated Complaint: SOB OZIEL: 3 Exam Narrative Exam Narrative: Gen: Awake and alert, in no apparent distress HEENT: Non-icteric sclera Neck: Supple Lungs: No apparent respiratory distress, normal respiratory effort. Lung sounds clear and equal bilaterally without wheezes, rhonchi, rales CV: Appears well perfused, heart with tachycardic rate but regular rhythm, systolic ejection murmur consistent with the patient's known aortic stenosis is auscultated, strong and symmetrical distal pulses. Right chest port in place, chest wall not tender to palpation Abdomen: Non-distended, soft, nontender MSK: Moves 4 extremities without apparent limitation in ROM. No unilateral calf swelling or tenderness, no peripheral edema Skin: Visualized skin without rashes, cyanosis. Neuro: Normal Gait, no obvious focal deficits or facial asymmetry. Speaks in full, clear sentences. Psych: Appropriate for situation. Course Vital Signs Vital signs: Vital Signs Temperature 36.9 C 12/26/24 19: Pulse 136 H 12/26/24 19: Respiratory Rate 20 12/26/24 19: Blood Pressure 147/88 H 12/26/24 19: Pulse Oximetry 96 12/26/24 19:26 Temperature 36.9 C 12/26/24 19:32 Pulse 136 H 12/26/24 19:32 Respiratory Rate 20 12/26/24 19:32 Respiratory Effort Short of Breath 12/26/24 19:53 Respiratory Depth Normal 12/26/24 19:53 Respiratory Pattern Normal 12/26/24 19:53 Blood Pressure 147/88 H 12/26/24 19:32 Pulse Oximetry 96 12/26/24 19:32 Pain Level 0 12/26/24 19:32 Lab/Test Results Lab/Test Results: Laboratory Tests Range/Units 12/26/24 19:50 WBC (4.4-10.8) 10^3/uL 10.49 RBC (4.36-5.78) 10^6/uL 3.34 L Hgb (13.5-17.5) g/dL 10.7 L Hct (40.0-50.0) % 32.5 L MCV (80-95) fL 97 H MCH (27.0-33.0) pg 32.0 MCHC (32.0-36.0) % 32.9 RDW (11.8-14.1) % 15.5 H Plt Count (130-400) 10^3/uL 139 MPV (8.0-11.0) fL 9.2 Immature Gran % % 0.6 Neutrophils % % 74.8 Lymphocytes % % 9.0 Monocytes % % 14.6 Eosinophils % % 0.4 Basophils % % 0.6 Nucleated RBC % (0.0-0.3) % 0.0 Absolute Neutrophils (1.2-6.7) 10^3/uL 7.86 H Absolute Lymphocytes (1.2-3.4) 10^3/uL 0.94 L Absolute Monocytes (0.1-0.8) 10^3/uL 1.53 H Absolute Eosinophils (0.0-0.7) 10^3/uL 0.04 Absolute Basophils (0.0-0.2) 10^3/uL 0.06 RBC Morphology Normal Sodium (136-145) mmol/L 141 Potassium (3.5-5.1) mmol/L 4.0 Chloride (98-107) mmol/L 105 Carbon Dioxide (21.0-32.0) mmol/L 26.5 Anion Gap (3-11) mmol/L 9.5 BUN (7-18) mg/dL 22 H Creatinine (0.70-1.30) mg/dL 1.5 H Est GFR (CKD-EPI 2020) (mL/min/1.73m2) 48.85 Glucose (74-106) mg/dL 223 H Calcium (8.5-10.1) mg/dL 8.5 Magnesium (1.8-2.4) mg/dL 2.0 Total Bilirubin (0.2-1.0) mg/dL 0.5 AST (15-37) U/L 17 ALT (16-63) U/L 21 Alkaline Phosphatase (46-116) U/L 118 H Troponin I (<or=76) ng/L 86 H* Total Protein (6.4-8.2) g/dL 7.0 Albumin (3.4-5.0) g/dL 3.6 Medical Decision Making This is a 74-year-old male patient presenting for evaluation of pleuritic chest pain and shortness of breath as well as a new diagnosis of atrial flutter with RVR. Differential includes but is not limited to cardiac arrhythmia, metabolic electrolyte derangement, dehydration and kidney injury, certainly considered pulmonary embolism given the patient's pleuritic chest pain and recent cancer history. Considered medication effect, though the patient is not actively on chemotherapy any longer. Considered ACS including STEMI, NSTEMI, unstable angina. Considered other pulmonary abnormalities including pneumonia, bronchitis, URI, pneumothorax, pulmonary edema and pleural effusion. I obtained an EKG, which shows an atrial flutter new compared to priors, with no evidence of STEMI. Ventricular rate 146, but the patient is otherwise hemodynamically appropriate. We will obtain a CT pulmonary embolism study, and labs to include CBC, CMP, magnesium, troponin. I will provide the patient with a liter of IV fluids. -I reviewed the patient's laboratory studies, which showed no leukocytosis or neutropenia, stable anemia and no thrombocytopenia. Chemistry panel without significant electrolyte derangements, renal function at his baseline, no evidence of liver dysfunction. Initial troponin is very slightly elevated to 87, consistent with his rapid rate. CT with a right middle and right lower lobe pulmonary embolism without evidence of heart strain. The patient's heart rate has persisted at 146 despite fluid resuscitation. I did have an extended shared decision-making conversation with the patient regarding synchronized cardioversion, as the onset of his dysrhythmia is not certain, and may indeed have started more than 48 hours ago. Given the risk of stroke and the patient's known thromboembolic potential, the decision was made to proceed with rate control and 15 mg of diltiazem was provided IV with a decrease in the patient's ventricular response rate to the 1 teens/120s. The patient had evidence of small pulmonary embolisms in the right middle and lower lobe, without evidence of associated right heart strain. He will be initiated on apixaban, first dose of 10 mg provided. I did consult with cardiology at [facility], as I feel this patient would benefit from transfer and admission for anticoagulation, ongoing rate control, and potentially PAT if he does require synchronized cardioversion. The dye room helper at this time is not recommending transfer, as she feels that this patient will respond appropriately to oral medications, and that his A-fib/flutter is likely due to the pulmonary embolism, which is adequately treated should improve his rhythm. She recommends 30 mg diltiazem every 6 hours, as long as the blood pressure can tolerate it, and discharged on 120 mg Cardizem extended release if the above-noted dosing regimen is successful in controlling his rate. I reached out to the hospitalist who is graciously accepted this patient for admission, he will be boarding in the emergency department awaiting inpatient bed availability here at [facility]. Remained hemodynamically improved while under my care. Angy Garcia MD Quality:SDOH Health Related Social Needs: Health related social needs details none PFSH All Active Problems (Updated 12/26/24 @ 22:41 by Angy Garcia MD) Atrial flutter with rapid ventricular response (Acute) Pulmonary embolism (Chronic) Hypothyroidism (acquired) (Chronic) Diffuse large B-cell lymphoma (Acute) CKD (chronic kidney disease) stage 3, GFR 30-59 ml/min (Chronic) Diabetes type 2, controlled (Chronic) Enlarged lymph nodes (Acute) Medical History Hypertension Nephrolithiasis Diverticulosis Surgical History Colonoscopy - MAC (02/13/17) Social History Smoking/Tobacco Use Status: Former Tobacco Use Smoking risk assessment performed?: Yes Alcohol Intake: former Drug use: Never Substance use type: does not use Housing: house
[2024-12-26] MEDS: Normal Saline - Diluent 50 ML VIAL IJ ×2 (20:34→20:57)
[2024-12-26] MEDS: Omnipaque 350 MG/ML 100 ML BTL IJ (20:34)
--- NOTE | 2024-12-26 21:11 | DI.VRAD_ITS ---
Addendum created by Alisa Mosqueda MD on 12/26/2024 9:14:50 PM EDT: THIS REPORT CONTAINS FINDINGS THAT MAY BE CRITICAL TO PATIENT CARE. The findings were verbally communicated via telephone conference with Angy Garcia at 9:14 PM EDT on 12/26/2024. The findings were acknowledged and understood. Initial report created on 12/26/2024 9:10:39 PM EDT: PROCEDURE INFORMATION: Exam: CTA Chest With Contrast Exam date and time: 12/26/2024 8:32 PM Age: 74 years old Clinical indication: Other: New a-flutter, HX lymphoma TECHNIQUE: Imaging protocol: Computed tomographic angiography of the chest with contrast. Exam focused on the arteries. 3D rendering (Not supervised by radiologist): MIP and/or 3D reconstructed images were created by the technologist. Contrast material: OMNIPAQUE 350; Contrast volume: 85 ml; Contrast route: INTRAVENOUS (IV); COMPARISON: CT CHEST/ABD/PEL W 08/22/2024 7:18 PM FINDINGS: Pulmonary arteries: Small right middle and lower lobe pulmonary embolus. No evidence of heart strain. The RV/LV ratio is 1 0.0. Aorta: Unremarkable. No aortic aneurysm. No aortic dissection. Thyroid: No thyroid lesions. No thyroid enlargement. Trachea: The central airways clear. Lungs: Linear bibasilar opacities most consistent with subsegmental atelectasis. Pleural spaces: Unremarkable. No pneumothorax. No pleural effusion. Heart: No cardiomegaly or pericardial effusion. Lymph nodes: No axillary adenopathy. Liver: There is a diffuse decrease in hepatic parenchymal density, consistent with fatty infiltration. Bones/joints: Unremarkable. No acute fracture. Soft tissues: Soft tissues are unremarkable as visualized. IMPRESSION: Small right middle and lower lobe pulmonary embolus. No evidence of heart strain. The RV/LV ratio is 1.0 Dictated and Authenticated by: Alisa Mosqueda MD. Orderin [facility] Leroy Travis MD
[2024-12-26] MEDS: dilTIAZem 25 MG/5 ML VIAL 15 MG IVP (21:32)
[2024-12-26 21:39] LABS: Troponin I 87 ng/L (<or=76)
[2024-12-26] MEDS: Apixaban 5 MG TAB 10 MG PO (22:16)
--- NOTE | 2024-12-26 22:21 | W.PM.HP.N ---
Date of service: 12/26/24 Time of Service: 22:00 Assessment and Plan Assessment and plan (1) Atrial flutter with rapid ventricular response: Status: Acute Assessment and plan: No previous diagnosis of arrhythmia Likely due to PE Patient did not feel palpitations Rate improved with IV diltiazem Per [facility] recommendations, admitting for overnight observation on cardiac monitoring, start diltiazem 30 mg PO q6h, discharge on diltiazem ER 120 mg PO daily (2) Pulmonary embolism: Status: Chronic Assessment and plan: CTA with emboli in RML and RLL, no evident right heart strain Likely the cause of atrial flutter and RVR Likely due to active malignancy and chemotherapy Starting apixaban 10 mg BID for 7 day load, then 5 mg BID indefinitely (3) Diffuse large B-cell lymphoma: Status: Acute Assessment and plan: Noted (4) Acute on chronic renal insufficiency: Status: Acute Assessment and plan: Creatinine 1.5 against 1.3 baseline. Mild VASQUEZ. IV fluids given before IV contrast Monitor for improvement (5) Diabetes mellitus treated with oral medication: Status: Acute Assessment and plan: Last available A1C was 7.5 in May 2024, not indicating good control Home regimen empagliflozin, metformin. Continue empagliflozin Hold metformin SSI Morning A1C (6) Hypothyroidism (acquired): Status: Chronic Assessment and plan: Continue home levothyroxine History of Present Illness History of Present Illness Chief Complaint: shortness of breath Narrative: Shaggy Carlton is a 74 year old man presenting December 26 with shortness of breath. He has diffuse large B-cell lymphoma and completed chemotherapy on December 03. At around midnight before presentation, he awoke with shortness of breath, with discomfort and heaviness in his chest with any deep inspiration. He has had some persistent fatigue, more than he usually has after a chemotherapy treatment. Otherwise he reports no abdominal pain, no N/V/D, no other symptoms. In the ED he was found to be in atrial flutter with HR 146. Troponin slightly elevated 87. CTA chest showed RML and RLL pulmonary emboli without right heart strain. Cardioversion was deferred due to thromboembolic risk. He was started on diltiazem. [facility] cardiology was consulted and recommended admission for cardiac monitoring with PO diltiazem start. Mild VASQUEZ. PMH includes large B cell lymphoma, CKD, diabetes on orals, hypothyroid, aortic stenosis. PFSH All Active Problems (Updated 12/27/24 @ 01:12 by Carlos Roth MD) Diabetes mellitus treated with oral medication (Acute) Acute on chronic renal insufficiency (Acute) Atrial flutter with rapid ventricular response (Acute) Pulmonary embolism (Chronic) Hypothyroidism (acquired) (Chronic) Diffuse large B-cell lymphoma (Acute) CKD (chronic kidney disease) stage 3, GFR 30-59 ml/min (Chronic) Diabetes type 2, controlled (Chronic) Enlarged lymph nodes (Acute) Medical History Hypertension Nephrolithiasis Diverticulosis Surgical History Colonoscopy - MAC (02/13/17) Social History Smoking/Tobacco Use Status: Former Tobacco Use Smoking risk assessment performed?: Yes Alcohol Intake: former Drug use: Never Substance use type: does not use Housing: house Meds Allergies and Home Medications Allergies Allergy/AdvReac Type Severity Reaction Status Date / Time No Known Allergies Allergy Unverified 12/26/24 19:30 Home Medications ?Medication ?Instructions ?Recorded ?Confirmed ?Type cholecalciferol (vitamin D3) 25 1,000 units PO DAILY 02/13/17 12/26/24 History mcg (1,000 unit) tablet coenzyme Q10 75 mg capsule (Ultra 75 mg PO DAILY 04/07/24 12/26/24 History CoQ10) levothyroxine 75 mcg capsule 75 mcg PO DAILY 04/07/24 12/26/24 History losartan 25 mg tablet 25 mg PO DAILY 04/07/24 12/26/24 History metformin 500 mg tablet 500 mg PO DAILY 04/07/24 12/26/24 History vitamins B1 B6 B12 oral liquid 5 ml PO DAILY 04/07/24 12/26/24 History acyclovir 400 mg tablet 400 mg PO BID 08/22/24 12/26/24 History atorvastatin 10 mg tablet 10 mg PO DAILY 08/22/24 12/26/24 [facility] 08/22[facility] 12/26/24 History Verio test strips) blood-glucose meter (OneTouch 08/22/24 12/26/24 History Verio Flex Meter) lancets 33 gauge (OneTouch Delica 08/22/24 12/26/24 History Plus Lancet) polyethylene glycol 3350 17 gram 17 g PO DAILY PRN 08/22/24 12/26/24 History oral powder packet prochlorperazine maleate 10 mg 10 mg PO PRN PRN 08/22/24 12/26/24 History tablet empagliflozin 10 mg tablet 10 mg PO DAILY 12/26/24 12/26/24 History (Jardiance) Exam Narrative Exam Narrative: General: This is a pleasant man in no distress HEENT: Normocephalic, atraumatic CV: tachycardic, systolic murmur as previously noted. Portacath in right upper chest. Resp: CTAB Abd: soft, NTND MSK: voluntary motion x4 Neuro: awake, alert, no focal deficits Results Labs 12/26/24 19:50 12/26/24 19:50 Labs: Laboratory Results - last 24 hr 12/26/24 12/26/24 19:50 21:05 WBC 10.49 RBC 3.34 L Hgb 10.7 L Hct 32.5 L MCV 97 H MCH 32.0 MCHC 32.9 RDW 15.5 H Plt Count 139 MPV 9.2 Immature Gran % 0.6 Neutrophils % 74.8 Lymphocytes % 9.0 Monocytes % 14.6 Eosinophils % 0.4 Basophils % 0.6 Nucleated RBC % 0.0 Absolute Neutrophils 7.86 H Absolute Lymphocytes 0.94 L Absolute Monocytes 1.53 H Absolute Eosinophils 0.04 Absolute Basophils 0.06 RBC Morphology Normal Sodium 141 Potassium 4.0 Chloride 105 Carbon Dioxide 26.5 Anion Gap 9.5 BUN 22 H Creatinine 1.5 H Est GFR (CKD-EPI 2020) 48.85 Glucose 223 H Calcium 8.5 Magnesium 2.0 Total Bilirubin 0.5 AST 17 ALT 21 Alkaline Phosphatase 118 H Troponin I 86 H* 87 H* Total Protein 7.0 Albumin 3.6 Last Vital Signs Temp 36.9 C 12/26/24 19:32 Pulse 106 H 12/26/24 21:50 Resp 16 12/26/24 21:50 BP 129/78 12/26/24 21:30 Pulse Ox 97 12/26/24 21:50 Time Spent Time spent with Patient: 40-54 minutes Time was spent: preparing to see the patient(eg.review tests), obtaining and/or reviewing separately otained hiistory, ordering medications,tests, procedures, referring, communicating with other health career services assistant, indepentently interpreting results, counseling the patient and care coordination
[2024-12-26 23:50] LABS: COVID-19 PCR Negative (Negative); RSV PCR Negative (Negative)
[2024-12-27] VITALS (100 sets, daily range): BP systolic 100–159; BP diastolic 38–100; PULSE 85–147; RESP 9–31; TEMP 36.5–36.8; O2SAT 91–99
[2024-12-27 00:03] LABS: Troponin I 122 ng/L (<or=76)
[2024-12-27] MEDS: dilTIAZem 30 MG TAB PO ×5 (00:06→23:53)
[2024-12-27 05:19] LABS: Abs Immature Grans 0.04 10^3/uL (0.0-0.06); HCT 31.5 % (40.0-50.0); HGB 10.3 g/dL (13.5-17.5); Immature Grans % 0.5 %; MCH 32.0 pg (27.0-33.0); MCHC 32.7 % (32.0-36.0); MCV 98 fL (80-95); MPV 9.8 fL (8.0-11.0); Platelet Count 127 10^3/uL (130-400); RBC 3.22 10^6/uL (4.36-5.78); RDW 15.4 % (11.8-14.1); RDW-SD 55.2 fL; WBC 7.67 10^3/uL (4.4-10.8)
[2024-12-27 05:34] LABS: ALT 17 U/L (16-63); AST 17 U/L (15-37); Albumin 3.3 g/dL (3.4-5.0); Alkaline Phosphatase 91 U/L (46-116); Anion Gap 7.6 mmol/L (3-11); BUN 20 mg/dL (7-18); Bilirubin, Total 0.6 mg/dL (0.2-1.0); CO2 28.4 mmol/L (21.0-32.0); Calcium 8.4 mg/dL (8.5-10.1); Chloride 105 mmol/L (98-107); Estimated GFR 58.01 (mL/min/1.73m2); Glucose 154 mg/dL (74-106); Magnesium 1.9 mg/dL (1.8-2.4); Potassium 4.0 mmol/L (3.5-5.1); Sodium 141 mmol/L (136-145); Total Protein 6.5 g/dL (6.4-8.2)
[2024-12-27 05:36] LABS: RBC Morphology Normal
[2024-12-27 05:59] LABS: Hemoglobin A1C 7.0 % (<5.7)
[2024-12-27] MEDS: Empaglifozin 10 MG TAB PO (09:06)
[2024-12-27] MEDS: Acyclovir 400 MG TAB PO ×2 (09:06→20:04)
[2024-12-27] MEDS: Losartan 25 MG TAB PO (09:06)
[2024-12-27] MEDS: Levothyroxine 75 MCG TAB PO (09:06)
--- NOTE | 2024-12-27 12:52 | W.PC.ACHO ---
Registration Status: ADM ЮЛИЯ Primary Language: Preferred Language: Portuguese ED Information & Data Chief Complaint SOB 12/26/24 20:20 Triage Note pt felt SOB since this am, 12/26/24 19:26 had a cough/cold this week. december 03 was most recent chemo treatment. Medical / Surgical History (Last Reviewed 08/22/24 @ 23:35 by Shaggy Castro) Hypertension Nephrolithiasis Diverticulosis (Last Reviewed 08/22/24 @ 23:35 by Shaggy Castro) Colonoscopy - MAC (02/13/17) Most Recent Vital Signs Temperature 36.9 C 12/26/24 19:32 Pulse 105 H 12/27/24 12:40 Pulse 106 H 12/27/24 12:40 Respiratory Rate 20 12/27/24 12:40 Respiratory Effort Non-Labored 12/27/24 02:48 Respiratory Depth Normal 12/27/24 02:48 Respiratory Pattern Normal 12/26/24 19:53 Blood Pressure 103/38 L 12/27/24 10:01 Blood Pressure Mean 59 12/27/24 10:01 Pulse Oximetry 97 12/27/24 12:40 Pain Level 0 12/26/24 19:32 Allergies No Known Allergies Allergy (Unverified 12/26/24 19:30) Active Medications Generic Name Dose Route Start Last Admin Trade Name Freq PRN Reason Stop Dose Admin Acyclovir 400 mg 12/27/24 08:30 12/27/24 09:06 Acyclovir 400 Mg Tab PO 400 mg BID LINDA Administration Diltiazem HCl 30 mg 12/27/24 00:00 12/27/24 12:31 Diltiazem 30 Mg Tab PO 30 mg Q6H LINDA Administration Empagliflozin 10 mg 12/27/24 08:30 12/27/24 09:06 Empaglifozin 10 Mg Tab PO 10 mg DAILY LINDA Administration Iohexol 100 ml 12/26/24 20:45 12/26/24 20:34 Omnipaque 350 Mg/Ml 100 Ml Btl IJ 01/25/25 23:59 85 ml DIRECTED LINDA Administration Levothyroxine Sodium 75 mcg 12/27/24 06:00 12/27/24 09:06 Levothyroxine 75 Mcg Tab PO 75 mcg 0600 LINDA Administration Losartan Potassium 25 mg 12/27/24 08:30 12/27/24 09:06 Losartan 25 Mg Tab PO 25 mg DAILY LINDA Administration Sodium Chloride 50 ml 12/26/24 20:45 12/26/24 20:34 Normal Saline - Diluent 50 Ml Vial IJ 50 ml DIRECTED LINDA Administration Sodium Chloride 50 ml 12/26/24 21:00 12/26/24 20:57 Normal Saline - Diluent 50 Ml Vial IJ 50 ml DIRECTED LINDA Administration IV IV Catheter Type [Left Saline Lock Antecubital] IV Catheter Type [Right Port-a-cath (single) Subclavian] IV Catheter Gauge [Left 18 Antecubital] IV Catheter Gauge [Right 20 Subclavian] Diet Orders Category Date Time Status Diabetes Consistent CHO [DIET] Nutrition 12/27/24 Breakfast Active Diagnostics 12/27/24 12/26/24 12/26/24 Range/Units 05:07 23:37 23:13 WBC 7.67 (4.4-10.8) 10^3/uL RBC 3.22 L (4.36-5.78) 10^6/uL Hgb 10.3 L (13.5-17.5) g/dL Hct 31.5 L (40.0-50.0) % MCV 98 H (80-95) fL MCH 32.0 (27.0-33.0) pg MCHC 32.7 (32.0-36.0) % RDW 15.4 H (11.8-14.1) % Plt Count 127 L (130-400) 10^3/uL MPV 9.8 (8.0-11.0) fL Immature Gran % 0.5 % Neutrophils % 67.0 % Lymphocytes % 10.6 % Monocytes % 20.2 % Eosinophils % 0.9 % Basophils % 0.8 % Nucleated RBC % 0.0 (0.0-0.3) % Absolute Neutrophils 5.14 (1.2-6.7) 10^3/uL Absolute Lymphocytes 0.81 L (1.2-3.4) 10^3/uL Absolute Monocytes 1.55 H (0.1-0.8) 10^3/uL Absolute Eosinophils 0.07 (0.0-0.7) 10^3/uL Absolute Basophils 0.06 (0.0-0.2) 10^3/uL RBC Morphology Normal Sodium 141 (136-145) mmol/L Potassium 4.0 (3.5-5.1) mmol/L Chloride 105 (98-107) mmol/L Carbon Dioxide 28.4 (21.0-32.0) mmol/L Anion Gap 7.6 (3-11) mmol/L BUN 20 H (7-18) mg/dL Creatinine 1.3 (0.70-1.30) mg/dL Est GFR (CKD-EPI 2020) 58.01 (mL/min/1.73m2) Glucose 154 H (74-106) mg/dL Hemoglobin A1c 7.0 H (<5.7) % Calcium 8.4 L (8.5-10.1) mg/dL Magnesium 1.9 (1.8-2.4) mg/dL Total Bilirubin 0.6 (0.2-1.0) mg/dL AST 17 (15-37) U/L ALT 17 (16-63) U/L Alkaline Phosphatase 91 (46-116) U/L Troponin I 122 H* (<or=76) ng/L Total Protein 6.5 (6.4-8.2) g/dL Albumin 3.3 L (3.4-5.0) g/dL COVID-19 Source Nasopharynx SARS-CoV-2 (PCR) Negative (Negative) Influenza Type A (PCR) Negative (Negative) Influenza Type B (PCR) Negative (Negative) RSV (PCR) Negative (Negative) 12/26/24 12/26/24 Range/Units 21:05 19:50 WBC 10.49 (4.4-10.8) 10^3/uL RBC 3.34 L (4.36-5.78) 10^6/uL Hgb 10.7 L (13.5-17.5) g/dL Hct 32.5 L (40.0-50.0) % MCV 97 H (80-95) fL MCH 32.0 (27.0-33.0) pg MCHC 32.9 (32.0-36.0) % RDW 15.5 H (11.8-14.1) % Plt Count 139 (130-400) 10^3/uL MPV 9.2 (8.0-11.0) fL Immature Gran % 0.6 % Neutrophils % 74.8 % Lymphocytes % 9.0 % Monocytes % 14.6 % Eosinophils % 0.4 % Basophils % 0.6 % Nucleated RBC % 0.0 (0.0-0.3) % Absolute Neutrophils 7.86 H (1.2-6.7) 10^3/uL Absolute Lymphocytes 0.94 L (1.2-3.4) 10^3/uL Absolute Monocytes 1.53 H (0.1-0.8) 10^3/uL Absolute Eosinophils 0.04 (0.0-0.7) 10^3/uL Absolute Basophils 0.06 (0.0-0.2) 10^3/uL RBC Morphology Normal Sodium 141 (136-145) mmol/L Potassium 4.0 (3.5-5.1) mmol/L Chloride 105 (98-107) mmol/L Carbon Dioxide 26.5 (21.0-32.0) mmol/L Anion Gap 9.5 (3-11) mmol/L BUN 22 H (7-18) mg/dL Creatinine 1.5 H (0.70-1.30) mg/dL Est GFR (CKD-EPI 2020) 48.85 (mL/min/1.73m2) Glucose 223 H (74-106) mg/dL Hemoglobin A1c (<5.7) % Calcium 8.5 (8.5-10.1) mg/dL Magnesium 2.0 (1.8-2.4) mg/dL Total Bilirubin 0.5 (0.2-1.0) mg/dL AST 17 (15-37) U/L ALT 21 (16-63) U/L Alkaline Phosphatase 118 H (46-116) U/L Troponin I 87 H* 86 H* (<or=76) ng/L Total Protein 7.0 (6.4-8.2) g/dL Albumin 3.6 (3.4-5.0) g/dL COVID-19 Source SARS-CoV-2 (PCR) (Negative) Influenza Type A (PCR) (Negative) Influenza Type B (PCR) (Negative) RSV (PCR) (Negative) [id number] Documentation Fingerstick Glucose Start: 12/26/24 22:16 Freq: AC & HS Status: Active Protocol: Activity Type Activity Date Activity User E-sign Co-sign Detail Recorded Client Recorded Date Recorded By Document 12/27/24 12:16 ASIF MENA(3) [id number] 12/27/24 12:17 ASIF MENA(4) Intake and Output - 24 Hour Total 12/26/24 19:24 thru 12/27/24 05:18 Intake Total 1240 Output Total 350 Balance 890 Weight 99.79 kg Intake: IV 1000 Oral 240 Output: Urine 350 Other: Urine Color Yellow Urine Appearance Cloudy Urine Odor Normal Falls Risk Assessment History of Falls No History 12/26/24 19:58 Contributing Factors No Factors 12/26/24 19:58 Ambulatory Aids Independent 12/26/24 19:58 Tubes/Lines None 12/26/24 19:58 Gait Evaluation No gait disturbance 12/26/24 19:58 Cognition No cognitive impairment 12/26/24 19:58 Fall Total Score 0 12/26/24 19:58 Level of Risk Standard/Low Risk 12/26/24 19:58 Problems (Last Reviewed 08/22/24 @ 23:35 by Shaggy Castro) Diabetes mellitus treated with oral medication (Acute) Acute on chronic renal insufficiency (Acute) Atrial flutter with rapid ventricular response (Acute) Pulmonary embolism (Chronic) Hypothyroidism (acquired) (Chronic) Diffuse large B-cell lymphoma (Acute) v v v v v v v v v Sending and/or Receiving Nurses: Please use comment section below to note any information pertinent to the patient hand-off not included above. Information / Comments: Paged at [phone], report called at [phone]. Chest port accessed last night, 18 G L AC. Report received from: Hoang Grijalva ED RN
[2024-12-27] MEDS: Insulin Aspart 300 UNITS/3 ML PEN SC ×3 (13:08→22:07)
--- NOTE | 2024-12-27 13:16 | PGE_ITS ---
Date of Service Date of service: 12/27/24 Time of Service: 13:16 Assessment and Plan Assessment and plan (1) Pulmonary embolism: Status: Chronic Assessment and plan: cw eliquis 10mg po bid for 7 days then 5mg po bid after that (2) Atrial flutter with rapid ventricular response: Status: Acute Assessment and plan: HR close to 100 on current regimen. Might need to go home on cardizem 90mg po tid. Pt can be optimized in the outpatient setting as long as he is opzimizing (3) Diabetes type 2, controlled: Status: Chronic Assessment and plan: cw medical management (4) Diffuse large B-cell lymphoma: Status: Acute Assessment and plan: follow up with oncology, (5) CKD (chronic kidney disease) stage 3, GFR 30-59 ml/min: Status: Chronic Assessment and plan: GFR 58 Subjective Subjective Interval history since last seen: Pt seen and examined in his room. Still with episodes of HR greater than 100 and some pleuritic chest pain Exam Narrative Exam Narrative: General: This is a pleasant man in no distress HEENT: Normocephalic, atraumatic CV: tachycardic, systolic murmur as previously noted. Portacath in right upper chest. Resp: CTAB Abd: soft, NTND MSK: voluntary motion x4 Neuro: awake, alert, no focal deficits Objective Last Vital Signs Temp 36.9 C 12/26/24 19:32 Pulse 105 H 12/27/24 12:40 Resp 20 12/27/24 12:40 BP 103/38 L 12/27/24 10:01 Pulse Ox 97 12/27/24 12:40 Laboratory Results - last 24 hr 12/26/24 12/26/24 12/26/24 19:50 21:05 23:13 WBC 10.49 RBC 3.34 L Hgb 10.7 L Hct 32.5 L MCV 97 H MCH 32.0 MCHC 32.9 RDW 15.5 H Plt Count 139 MPV 9.2 Immature Gran % 0.6 Neutrophils % 74.8 Lymphocytes % 9.0 Monocytes % 14.6 Eosinophils % 0.4 Basophils % 0.6 Nucleated RBC % 0.0 Absolute Neutrophils 7.86 H Absolute Lymphocytes 0.94 L Absolute Monocytes 1.53 H Absolute Eosinophils 0.04 Absolute Basophils 0.06 RBC Morphology Normal Sodium 141 Potassium 4.0 Chloride 105 Carbon Dioxide 26.5 Anion Gap 9.5 BUN 22 H Creatinine 1.5 H Est GFR (CKD-EPI 2020) 48.85 Glucose 223 H Hemoglobin A1c Calcium 8.5 Magnesium 2.0 Total Bilirubin 0.5 AST 17 ALT 21 Alkaline Phosphatase 118 H Troponin I 86 H* 87 H* Total Protein 7.0 Albumin 3.6 COVID-19 Source Nasopharynx SARS-CoV-2 (PCR) Negative Influenza Type A (PCR) Negative Influenza Type B (PCR) Negative RSV (PCR) Negative 12/26/24 12/27/24 23:37 05:07 WBC 7.67 RBC 3.22 L Hgb 10.3 L Hct 31.5 L MCV 98 H MCH 32.0 MCHC 32.7 RDW 15.4 H Plt Count 127 L MPV 9.8 Immature Gran % 0.5 Neutrophils % 67.0 Lymphocytes % 10.6 Monocytes % 20.2 Eosinophils % 0.9 Basophils % 0.8 Nucleated RBC % 0.0 Absolute Neutrophils 5.14 Absolute Lymphocytes 0.81 L Absolute Monocytes 1.55 H Absolute Eosinophils 0.07 Absolute Basophils 0.06 RBC Morphology Normal Sodium 141 Potassium 4.0 Chloride 105 Carbon Dioxide 28.4 Anion Gap 7.6 BUN 20 H Creatinine 1.3 Est GFR (CKD-EPI 2020) 58.01 Glucose 154 H Hemoglobin A1c 7.0 H Calcium 8.4 L Magnesium 1.9 Total Bilirubin 0.6 AST 17 ALT 17 Alkaline Phosphatase 91 Troponin I 122 H* Total Protein 6.5 Albumin 3.3 L COVID-19 Source SARS-CoV-2 (PCR) Influenza Type A (PCR) Influenza Type B (PCR) RSV (PCR) Time Spent with Patient Time Spent with Patient: 25-34 minutes Time was spent: preparing to see the patient(eg.review tests), obtaining and/or reviewing separately otained hiistory, ordering medications,tests, procedures, referring, communicating with other health career placement specialist, indepentently interpreting results, counseling the patient and care coordination
[2024-12-27 13:42] LABS: Troponin I 102 ng/L (<or=76)
--- NOTE | 2024-12-27 14:31 | PDOC.CMIN ---
Date of service: 12/27/24 Time of Service: 14:32 Care Management Initial Assmt Initial Assessment Reason for Hospitalization: SOB Functional Status/Living Situation Patient Presentation: Shaggy was lying down in bed and awake when CM met with him. He was accompanied by his daughter, granddaughter, and . He presented to the ED yesterday evening for evaluation of shortness of breath and pleuritic chest pain; See ED documentation. Per report, he has recently completed chemotherapy (12/03/24). He will be started on new apixaban; Will verify cost with patients RX prior to d/c. Shaggy was pleasant and willing to engage in conversation. He shared that he is living in [place] with his , Aylin. Shaggy is hopeful to go home within the next day or so. Shaggy shares he does not have services at home and does not feel there is a need for them at this time. He is independent at baseline, including driving. 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 CM will continue to follow. 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 ) Instrumental Activities of Daily Living (ADLs): Independent Medications Medication Management: No Issues/Barriers identified Physical Functioning/Mobility Assistive Device: none Advance Directives Advance Directives: Do you have an Advance Directive: N 02/10/15, 08:03 AD On File at [facility]: N 09/01/13, 10:11 Date Asked 12/26/24 12/26/24, 19:30 AD Date Reviewed COLST On File at [facility] No 08/22/24, 21:44 COLST Date Scanned Code Status Resuscitation Status Full Code Portal Pt does not currently have a portal and education provided: Yes Insurance Coverage/Financial Issues Insurance: /[facility] - [id number] Care Team Visit Care Team Role Provider Type Aly Varela Primary Care Provider NON-[facility] STAFF PHYSICIAN Marlyn Moya RDN, CDCES Other Providers STRUCTURES MECHANIC Corky Grider RDN Other Providers STRUCTURES MECHANIC Angy Garcia MD Emergency Provider [facility] STAFF PHYSICIAN Carlos Roth MD Admit Provider [facility] STAFF PHYSICIAN Attending Provider Discharge Potential Discharge Needs: PT Evaluation Anticipated Barriers to Discharge: None Identified Patient/Family Education Needs: Review discharge instructions, discuss Ask Me Three Transportation: Private vehicle Plan: Anticipate Shaggy will be discharged home once medically ready with no new services indicated at this time. It is recommended that he follow up with his community providers and discharge plan of care. He will be transported via private vehicle by his . CM will follow. Social Determinants of Health Screening Social Determinants of health last assessed in clinic: 12/27/24 Will the Patient Participate in the Screening?: Yes Do you worry about having a steady place to live?: no Problems where you live: no known problems In the past 12 months, have you had to go without electric, gas, oil or water in your home?: no 1. Within the past 12 months, we worried whether our food would run out before we got money to buy more.: Never true 2. Within the past 12 months, the food we bought just didn't last and we didn't have money to get more.: Never true Has lack of transportation kept you from medical appointments or from doing things needed for daily living?: no Has anyone in your life made you feel unsafe or unsupported?: no How hard is it for you to pay for the very basics like food, housing, medical care, and heating? Would you say it is:: Not hard at all Do you want help finding or keeping work or a job?: I do not need or want help If for any reason you need help with day-to-day activities such as bathing, preparing meals, shopping, managing finances, etc., do you get the help you need?: I don?t need any help How often do you feel lonely or isolated from those around you?: Never Do you speak a language other than German at home?: No Does the patient want assistance with any of the above?: No PFSH All Active Problems (Updated 12/27/24 @ 01:12 by Carlos Roth MD) Diabetes mellitus treated with oral medication (Acute) Acute on chronic renal insufficiency (Acute) Atrial flutter with rapid ventricular response (Acute) Pulmonary embolism (Chronic) Hypothyroidism (acquired) (Chronic) Diffuse large B-cell lymphoma (Acute) CKD (chronic kidney disease) stage 3, GFR 30-59 ml/min (Chronic) Diabetes type 2, controlled (Chronic) Enlarged lymph nodes (Acute) Medical History Hypertension Nephrolithiasis Diverticulosis Surgical History Colonoscopy - MAC (02/13/17) Social History Smoking/Tobacco Use Status: Former Tobacco Use Smoking risk assessment performed?: Yes Alcohol Intake: former Drug use: Never Substance use type: does not use Housing: house Readmission Within the Past 30 Days Yes or No: No
[2024-12-27] MEDS: Apixaban 5 MG TAB 10 MG PO ×2 (14:46→20:04)
[2024-12-27] MEDS: Atorvastatin 10 MG TAB PO (20:04)
[2024-12-28 00:06] VITALS: BP 105/59; PULSE 94; RESP 22; TEMP 36.2; O2SAT 95
[2024-12-28 03:32] VITALS: BP 116/79; PULSE 71; RESP 20; TEMP 36.6; O2SAT 97
[2024-12-28] MEDS: Levothyroxine 75 MCG TAB PO (05:41)
[2024-12-28] MEDS: dilTIAZem 30 MG TAB PO ×2 (05:41→12:06)
[2024-12-28 07:12] VITALS: BP 114/66; PULSE 90; RESP 18; TEMP 36.5; O2SAT 96
[2024-12-28 07:13] LABS: Abs Immature Grans 0.02 10^3/uL (0.0-0.06); HCT 32.7 % (40.0-50.0); HGB 10.8 g/dL (13.5-17.5); Immature Grans % 0.4 %; MCH 32.0 pg (27.0-33.0); MCHC 33.0 % (32.0-36.0); MCV 97 fL (80-95); MPV 9.9 fL (8.0-11.0); Platelet Count 133 10^3/uL (130-400); RBC 3.38 10^6/uL (4.36-5.78); RDW 15.3 % (11.8-14.1); RDW-SD 54.9 fL; WBC 4.92 10^3/uL (4.4-10.8)
[2024-12-28 07:32] LABS: ALT 18 U/L (16-63); AST 15 U/L (15-37); Albumin 3.1 g/dL (3.4-5.0); Alkaline Phosphatase 90 U/L (46-116); Anion Gap 8.8 mmol/L (3-11); BUN 22 mg/dL (7-18); Bilirubin, Total 0.5 mg/dL (0.2-1.0); CO2 26.2 mmol/L (21.0-32.0); Calcium 8.7 mg/dL (8.5-10.1); Chloride 106 mmol/L (98-107); Estimated GFR 58.01 (mL/min/1.73m2); Glucose 159 mg/dL (74-106); Potassium 4.0 mmol/L (3.5-5.1); Sodium 141 mmol/L (136-145); Total Protein 6.5 g/dL (6.4-8.2)
[2024-12-28] MEDS: Apixaban 5 MG TAB 10 MG PO (07:52)
[2024-12-28] MEDS: Losartan 25 MG TAB PO (07:52)
[2024-12-28] MEDS: Acyclovir 400 MG TAB PO (07:52)
[2024-12-28] MEDS: Empaglifozin 10 MG TAB PO (07:53)
[2024-12-28] MEDS: Insulin Aspart 300 UNITS/3 ML PEN SC ×2 (08:23→12:07)
--- NOTE | 2024-12-28 10:04 | PDOC.CMDIS ---
Date of service: 12/28/24 Time of Service: 10:04 LACE Index Scoring Tool Questions: Length of Stay (in days): 2 Was the patient admitted via the E.D.?: Yes Comorbidities: Diabetes w/o Complication and Liver or Renal Disease E.D. Visits: 2 Answers: Total Score: 12 Risk of Readmission: High Risk Care Management Discharge Plan Reason for Hospitalization: SOB Discharge Plan: Shaggy will be discharged home today with no new services indicated. It is recommended that he follow up with his community providers and discharge plan of care. He will be transported via private vehicle by his . CM verified cost of new Eliquis, has a $0 copay. Patient/Family Education Needs: Review of discharge instructions, activity, limitations, and plan of care. Discuss ask me three. SDOH Health Related Social Needs: Health related social needs details none
[2024-12-28 11:29] VITALS: BP 107/68; PULSE 95; RESP 18; TEMP 36.8; O2SAT 96
--- NOTE | 2024-12-29 09:33 | W.NUTRFU ---
Date of service: 12/28/24 Time of Service: 09:30 Nutrition Note NOTE: Visited with Shaggy and his after receiving consult request for diabetes ed/mgt. A1C 7..0% with hx in 7's and 6's. Jardiance and metformin at home for mgt. Shaggy feels he does well with balancing managing his glucose levels and enjoying life sometimes. He finished his last round of chemo recently with no complaints of significant wt changes or reduced appetite. He was interested in my card for outpatient nutrition services as he sometimes comes up with questions or would like a run through his usual meal pattern. anticipate discharge later today Time Spent in Nutritional Counseling and Treatment: 5 min
--- NOTE | 2024-12-30 15:37 | W.PM.DS.N ---
Date of service: 12/28/24 Time of Service: 14:00 DS: Diagnosis Discharge Diagnosis (1) Pulmonary embolism: Status: Chronic (2) Atrial flutter with rapid ventricular response: Status: Resolved (3) Diabetes type 2, controlled: Status: Chronic (4) Diffuse large B-cell lymphoma: Status: Acute (5) CKD (chronic kidney disease) stage 3, GFR 30-59 ml/min: Status: Chronic Discharge Plan Disposition Patient Disposition: Home Condition: Stable Discharge Details Reason For Visit: AFIB+RVR+PE Admit Date/Time: 12/26/24 22:11 Admit Provider: Carlos Roth Attending Provider: Carlos Roth Primary Care Provider: Aly Varela Hospital Course Hospital Course: This is a 74-year-old gentleman who was admitted on 26 December for atrial fibrillation as well as a pulmonary emboli. At the time of admission he had actually atrial flutter with RVR. The plan was to start on Cardizem and Eliquis monitor for improvement. Over the ensuing 2 days he improved in regards to his symptomology specifically denying any more chest pain as well as his tachycardia. On the I recommended discharge to which he readily agreed. I have sent him home on Cardizem 120 3 times daily as well as Eliquis 10 mg p.o. twice daily for 7 days and then 5 mg p.o. twice daily thereafter. Patient and family are counseled and understand the medical regimen. Recommended the patient follow-up with his PCP in 5 to 7 days. PT does have an elevated MCV with minor anemia so would consider anemia work up in the outpatient setting. Pt also has stage II/III CKD and will defer further work up to the outpatient setting. Mild troponin elevations noted but ekg is not consistent with acs. Pt will be dc in good health Recommendations for Follow Up Recommended tests to be ordered by follow up provider: anemia work up elevated mcv work up CKD work up Cardiac work up at the discretion of PCP Home Meds and New Rx's Prescriptions: New diltiazem HCl 30 mg Tablet 60 mg PO Q8H 30 Days Qty: 180 0RF Eliquis 5 mg Tablet 5 mg PO BID 30 Days Qty: 75 0RF Rx Instructions: take 10mg po bid for 6 days and then 5 mg po bid thereafter Continued levothyroxine 75 mcg capsule 75 mcg PO DAILY losartan 25 mg tablet 25 mg PO DAILY metformin 500 mg tablet 500 mg PO BID Ultra CoQ10 75 mg capsule 100 mg PO DAILY vitamins B1 B6 B12 Liquid 5 ml PO DAILY cholecalciferol (vitamin D3) 1,000 UNITS tablet 1,000 units PO DAILY Jardiance 10 mg tablet 10 mg PO DAILY Patient Comments: TAKE ONE TABLET BY MOUTH EVERY MORNING vutamin B 12 5,000 mg PO DAILY acyclovir 400 mg tablet 400 mg PO BID prochlorperazine maleate 10 mg tablet 10 mg PO PRN PRN (DME) blood-glucose meter [[email or web address] Verio Flex meter] [facility] MISCELLANEOUS Patient Comments: TEST ONCE DAILY (DME) OneTouch Verio test strips Strip MISCELLANEOUS Patient Comments: TEST BLOOD SUGAR ONCE DAILY (DME) lancets [[employer]Touch Delica Plus Lancet] 33 gauge [facility] MISCELLANEOUS Patient Comments: TEST BLOOD SUGAR ONCE DAILY Discontinued atorvastatin 10 mg tablet 10 mg PO QHS Patient Comments: TAKE ONE TABLET BY MOUTH EVERY NIGHT polyethylene glycol 3350 17 gram powder in packet 17 g PO DAILY PRN Patient Comments: MIX 17 GRAMS (1 PACKET) IN LIQUID AND DRINK BY MOUTH DAILY NEEDED (CONSTIPATION) Discharge Instructions Stand Alone Forms: Nursing Discharge Form Referrals: Aly Varela [Primary Care Provider, Medicine] Referral Note: follow up with pcp in 5-7 days. Call the office for appt if no one contacts you in 1-2 business days. Activity:: Activity as Tolerated Equipment/Supplies:: No Equipment Needed Diet:: As Tolerated Discharge Orders Discharge Orders: Discharge Order (Routine); Ordered 12/28/24 Ordered By: Lucien Aranda Discharge Data Discharge Date/Time-TO BE ENTERED AT DEPARTURE: 12/28/24 12:30 DS: Summary Time Spent with Patient providing and/or coordinating discharge services: Greater than 30 minutes Status at Discharge Functional status at discharge: independent ambulation Overall status at discharge: patient is back to baseline Mental Status: mental status grossly normal Speech and Movement: speech and movement normal Mood: congruent mood Affect: normal affect Quality:SDOH Health Related Social Needs: Health related social needs details none Exam Narrative Exam Narrative: General: This is a pleasant man in no distress HEENT: Normocephalic, atraumatic CV: tachycardic, systolic murmur as previously noted. Portacath in right upper chest. Resp: CTAB Abd: soft, NTND MSK: voluntary motion x4 Neuro: awake, alert, no focal deficits Psych Mental Status: mental status grossly normal Speech and Movement: speech and movement normal Mood: congruent mood Affect: normal affect DS: Data Vitals/I&O Vitals and I&O: Vital Signs Temperature 36.8 C 12/28/24 11:29 Temperature Source Temporal Artery Scan 12/28/24 11:29 Pulse 95 H 12/28/24 11:29 Pulse Rhythm Irregular 12/27/24 12:58 Pulse 106 H 12/27/24 12:40 Respiratory Rate 18 12/28/24 11:29 Respiratory Effort Normal, Non-Labored 12/27/24 12:58 Respiratory Depth Normal 12/27/24 12:58 Respiratory Pattern Normal 12/27/24 12:58 Blood Pressure 107/68 12/28/24 11:29 Blood Pressure Mean 81 12/28/24 11:29 Pulse Oximetry 96 12/28/24 11:29 Oxygen Delivery Method Room Air 12/28/24 11:29 Oxygen Flow Rate 0 12/28/24 11:29 Pain Level 0 12/28/24 03:32 PFSH All Active Problems (Updated 12/29/24 @ 00:04 by ASIF MENA) Diabetes mellitus treated with oral medication (Acute) Acute on chronic renal insufficiency (Acute) Pulmonary embolism (Chronic) Hypothyroidism (acquired) (Chronic) Diffuse large B-cell lymphoma (Acute) CKD (chronic kidney disease) stage 3, GFR 30-59 ml/min (Chronic) Diabetes type 2, controlled (Chronic) Enlarged lymph nodes (Acute) Medical History Hypertension Nephrolithiasis Diverticulosis Surgical History Colonoscopy - MAC (02/13/17) Social History Smoking/Tobacco Use Status: Former Tobacco Use Smoking risk assessment performed?: Yes Alcohol Intake: former Drug use: Never Substance use type: does not use Housing: house Time Spent with Patient Time Spent with Patient: 45-69 minutes Time was spent: preparing to see the patient(eg.review tests), obtaining and/or reviewing separately otained hiistory, ordering medications,tests, procedures, referring, communicating with other health day care aide, indepentently interpreting results, counseling the patient and care coordination
== END 2024-12-28 12:30 | disposition home or self-care (01) ==
LOC: ER 19:31 → EDHOLD 22:18 → MS 12-27 12:56
PROVIDERS: Admitting Provider Family Medicine; Emergency Provider Emergency Medicine; PCP Physician Assistant; Responsible Provider Hospitalist; Visit Provider Family Medicine
DX: I48.92 Unspecified atrial flutter (principal); I26.99 Other pulmonary embolism without acute cor pulmonale; C83.38 Diffuse large B-cell lymphoma, lymph nodes of multiple sites; E11.22 Type 2 diabetes mellitus with diabetic chronic kidney disease; Z79.84 Long term (current) use of oral hypoglycemic drugs; E03.9 Hypothyroidism, unspecified; Z79.899 Other long term (current) drug therapy; N17.9 Acute kidney failure, unspecified; R06.02 Shortness of breath; R07.89 Other chest pain; I35.0 Nonrheumatic aortic (valve) stenosis; N18.30 Chronic kidney disease, stage 3 unspecified; Z95.828 Presence of other vascular implants and grafts
CPT/HCPCS: 00123; 36415; 71275; 80053; 87637; 93005; 96361; 96374; 99285; 83036; 83735; 84484; 85025; 93010; 99222; 99231; 99239; J1815; J3490